=== PATIENT | female | born 1970 | race Caucasian/White ===

== ENCOUNTER 2017-10-28 16:32 | Emergency (ER) | payer MEDICAID ==
[2017-10-28 18:38] LABS: ADD MAN DIFF? NO
[2017-10-28 18:42] LABS: BASOPHILS % 0.8 % (0.0-2.0); EOSINOPHILS # 0.1 10^3/ul (0.0-0.5); EOSINOPHILS % 1.2 % (0.0-7.0); HEMATOCRIT 40.7 % (37.0-47.0); HEMOGLOBIN 14.1 g/dl (12.0-16.0); LYMPHOCYTES # 1.7 10^3/ul (0.8-2.9); LYMPHOCYTES % 32.4 % (15.0-51.0); MEAN CORPUSCULAR HGB CONC 34.6 g/dl (32.0-37.0); MEAN CORPUSCULAR VOLUME 92.3 fl (82.0-101.0); MEAN PLATELET VOLUME 10.3 fl (7.4-10.4); MONOCYTE # 0.7 10^3/ul (0.3-0.9); MONOCYTES % 13.3 % (0.0-11.0); NEUTROPHIL # 2.7 10^3/ul (1.6-7.5); NEUTROPHILS % 52.3 % (39.0-77.0); PLATELET COUNT 144 10^3/UL (140-415); RED BLOOD COUNT 4.41 10^6/ul (4.20-5.40); RED CELL DISTRIBUTION WIDTH 11.4 % (11.5-14.5)
[2017-10-28 18:42] LABS: WHITE BLOOD COUNT 5.1 10^3/ul (4.8-10.8)
[2017-10-28] MEDS: SOD CHLORIDE 0.9% 1,000 ML IV (18:45)
[2017-10-28 18:53] LABS: ADD UMIC NO; UR ASCORBIC ACID NEGATIVE (NEGATIVE); UR BILIRUBIN (Dip) NEGATIVE (NEGATIVE); UR BLOOD (Dip) NEGATIVE (NEGATIVE); UR CLARITY CLEAR (CLEAR); UR COLOR STRAW (YELLOW); UR GLUCOSE (Dip) NEGATIVE (NEGATIVE); UR KETONES (Dip) NEGATIVE (NEGATIVE); UR LEUKOCYTE ESTERASE (Dip) NEGATIVE Leu/ul (NEGATIVE); UR NITRITE (Dip) NEGATIVE (NEGATIVE); UR SPECIFIC GRAVITY (Dip) 1.014 (1.003-1.030); UR TOTAL PROTEIN (Dip) NEGATIVE (NEGATIVE); UR UROBILINOGEN (Dip) NEGATIVE (NEGATIVE)
[2017-10-28 19:04] LABS: ANION GAP 15 (8-16); BLOOD UREA NITROGEN 13 mg/dl (7-20); CALCIUM 9.6 mg/dl (8.4-10.2); CARBON DIOXIDE 27 mmol/L (21-31); CHLORIDE 102 mmol/L (97-110); CREATININE 0.58 mg/dl (0.44-1.00); GLUCOSE 150 mg/dl (70-220); SODIUM 140 mmol/L (135-144)
[2017-10-28 20:17] LABS: TROPONIN-I < 0.012 ng/ml (0.00-0.12)
== END 2017-10-28 21:41 | disposition home or self-care (01) ==
LOC: E/R 16:32
DX: H53.8 Other visual disturbances (principal); R42 Dizziness and giddiness; I10 Essential (primary) hypertension; Z85.3 Personal history of malignant neoplasm of breast
CPT/HCPCS: 36415; 70450; 71045; 80048; 81003; 82962; 84484; 85025; 99285-25

== ENCOUNTER 2018-10-09 14:38 | Inpatient (IN) | payer MEDICAID ==
[2018-10-09] MEDS: METOCLOPRAMIDE 10 MG INJ IV (16:48)
[2018-10-09] MEDS: SOD CHLORIDE 0.9% 1,000 ML IV (16:48)
[2018-10-09 16:50] LABS: ABNORMAL IP MESSAGE 1; HEMATOCRIT 38.5 % (37.0-47.0); HEMOGLOBIN 13.5 g/dl (12.0-16.0); MEAN CORPUSCULAR HEMOGLOBIN 32.3 pg (29.0-33.0); MEAN CORPUSCULAR HGB CONC 35.1 g/dl (32.0-37.0); MEAN CORPUSCULAR VOLUME 92.1 fl (82.0-101.0); MEAN PLATELET VOLUME 11.8 fl (7.4-10.4); NUCLEATED RED BLOOD CELLS% 1.5 /100WBC (0.0-0.0); PLATELET COUNT 63 10^3/UL (140-415); RED BLOOD COUNT 4.18 10^6/ul (4.20-5.40); RED CELL DISTRIBUTION WIDTH 13.5 % (11.5-14.5)
[2018-10-09 16:50] LABS: WHITE BLOOD COUNT 5.2 10^3/ul (4.8-10.8)
[2018-10-09 16:54] LABS: ADD MAN DIFF? YES; POSITIVE DIFF @See below
[2018-10-09 17:01] LABS: HEMOGLOBIN A1C 7.2 % (0-5.9)
[2018-10-09 17:07] LABS: ALANINE AMINOTRANSFERASE 271 IU/L (13-69); ALBUMIN 4.4 g/dl (3.3-4.9); ALBUMIN/GLOBULIN RATIO 1.33; ALKALINE PHOSPHATASE 531 IU/L (42-121); ANION GAP 13 (5-13); ASPARTATE AMINO TRANSFERASE 287 IU/L (15-46); BILIRUBIN,INDIRECT 0.7 mg/dl (0-1.1); BILIRUBIN,TOTAL 1.3 mg/dl (0.2-1.3); BLOOD UREA NITROGEN 17 mg/dl (7-20); CALCIUM 11.2 mg/dl (8.4-10.2); CARBON DIOXIDE 26 mmol/L (21-31); CHLORIDE 94 mmol/L (97-110); CHOL/HDL RATIO 4.5 RATIO; CHOLESTEROL 309 mg/dl (100-200); CREATININE 0.52 mg/dl (0.44-1.00); Estimated GFR > 60 mL/min (>60); GLUCOSE 257 mg/dl (70-220); HDL CHOLESTEROL 68 mg/dl (34-88); INR 0.91; LDL CHOLESTEROL,CALCULATED 202 mg/dl; POTASSIUM 3.8 mmol/L (3.5-5.1); PROTIME 12.4 Sec (11.9-14.9); SODIUM 133 mmol/L (135-144); TOTAL PROTEIN 7.7 g/dl (6.1-8.1); TRIGLYCERIDES 197 mg/dl (0-149)
[2018-10-09 17:08] LABS: PARTIAL THROMBOPLASTIN TIME 29.7 Sec (23.0-35.0)
[2018-10-09 17:17] LABS: TROPONIN-I 0.013 ng/ml (0.000-0.120)
[2018-10-09 17:47] LABS: BAND NEUTROPHILS #M 0.2 10^3/ul (0.0-0.6); BAND NEUTROPHILS % (M) 5 % (0-4); BASOPHILS % (M) 1 % (0-2); GIANT THROMBO% (M) 1 % (0-0); LYMPHOCYTES #M 1.3 10^3/ul (0.8-2.9); LYMPHOCYTES % (M) 26 % (15-51); METAMYELOCYTES #M 0.1 10^3/ul (0.0-0.0); METAMYELOCYTES %M 2 % (0-0); MONOCYTE #M 0.6 10^3/ul (0.3-0.9); MONOCYTES % (M) 13 % (0-11); MYELOCYTES % (M) 1 % (0-0); PLATELET ESTIMATE DECREASED; POLYCHROMASIA 1+ (0-0); PROMYELOCYTES #M 0.1 10^3/ul (0-0); PROMYELOCYTES % (M) 2 % (0-0); SEG NEUT #M 2.6 10^3/ul (1.6-7.5); SEGMENTED NEUTROPHILS (M) % 50 % (39-77); SMUDGE%M 10 % (0-0)
[2018-10-09] MEDS: SOD CHLORIDE 0.9% 0 ML IV (18:42)
[2018-10-09 19:25] LABS: ADD UMIC NO; UR ASCORBIC ACID NEGATIVE (NEGATIVE); UR BILIRUBIN (Dip) NEGATIVE (NEGATIVE); UR BLOOD (Dip) NEGATIVE (NEGATIVE); UR CLARITY CLEAR (CLEAR); UR COLOR YELLOW (YELLOW); UR GLUCOSE (Dip) NEGATIVE (NEGATIVE); UR KETONES (Dip) NEGATIVE (NEGATIVE); UR LEUKOCYTE ESTERASE (Dip) NEGATIVE Leu/ul (NEGATIVE); UR NITRITE (Dip) NEGATIVE (NEGATIVE); UR SPECIFIC GRAVITY (Dip) 1.044 (1.003-1.030); UR TOTAL PROTEIN (Dip) NEGATIVE (NEGATIVE); UR UROBILINOGEN (Dip) 1+ mg/dL (NEGATIVE)
[2018-10-09] MEDS ORDERED: ALBUTEROL/IPRATROPIUM (NEB) 3 ML AMP NEB (20:00)
[2018-10-09] MEDS: LABETALOL HCL 20MG INJ IV ×2 (20:00→22:05)
[2018-10-09 20:39] LABS: AMPHETAMINE/METHAMPHETAMINE Negative (NEGATIVE); BARBITURATES Negative (NEGATIVE); BENZODIAZEPINES Negative (NEGATIVE); CANNABINOIDS Negative (NEGATIVE); COCAINE Negative (NEGATIVE); OPIATES Negative (NEGATIVE)
[2018-10-09] MEDS: DEXAMETHASONE 10 MG/ML 1 ML INJ IV (20:59)
[2018-10-09] MEDS: SOD CHLORIDE 0.9% 100 ML (21:00)
[2018-10-09] MEDS: IOHEXOL 100 ML (21:00)
[2018-10-10 01:34] LABS: TYPE AND SCREEN 1 1
[2018-10-10] MEDS: LABETALOL HCL 20MG INJ IV ×5 (01:40→16:51)
[2018-10-10 04:41] LABS: ADD MAN DIFF? NO
[2018-10-10 04:49] LABS: WHITE BLOOD COUNT 6.3 10^3/ul (4.8-10.8)
[2018-10-10 04:49] LABS: ABNORMAL IP MESSAGE 1; BASOPHILS % 0.6 % (0.0-2.0); EOSINOPHILS % 0.3 % (0.0-7.0); HEMATOCRIT 34.1 % (37.0-47.0); HEMOGLOBIN 11.9 g/dl (12.0-16.0); LYMPHOCYTES # 1.5 10^3/ul (0.8-2.9); LYMPHOCYTES % 23.9 % (15.0-51.0); MEAN CORPUSCULAR HEMOGLOBIN 32.5 pg (29.0-33.0); MEAN CORPUSCULAR HGB CONC 34.9 g/dl (32.0-37.0); MEAN CORPUSCULAR VOLUME 93.2 fl (82.0-101.0); MONOCYTE # 0.5 10^3/ul (0.3-0.9); MONOCYTES % 7.6 % (0.0-11.0); NEUTROPHIL # 3.9 10^3/ul (1.6-7.5); NEUTROPHILS % 62.2 % (39.0-77.0); NUCLEATED RED BLOOD CELLS # 0.1 10^3/ul (0.0-0.0); PLATELET COUNT 113 10^3/UL (140-415); RED BLOOD COUNT 3.66 10^6/ul (4.20-5.40); RED CELL DISTRIBUTION WIDTH 13.5 % (11.5-14.5)
[2018-10-10 05:06] LABS: POSITIVE DIFF @See below
[2018-10-10 05:11] LABS: ALANINE AMINOTRANSFERASE 238 IU/L (13-69); ALBUMIN 4.5 g/dl (3.3-4.9); ALBUMIN/GLOBULIN RATIO 1.36; ALKALINE PHOSPHATASE 449 IU/L (42-121); ANION GAP 11 (5-13); ASPARTATE AMINO TRANSFERASE 239 IU/L (15-46); BILIRUBIN,INDIRECT 0.8 mg/dl (0-1.1); BILIRUBIN,TOTAL 1.3 mg/dl (0.2-1.3); BLOOD UREA NITROGEN 14 mg/dl (7-20); CALCIUM 10.9 mg/dl (8.4-10.2); CARBON DIOXIDE 28 mmol/L (21-31); CHLORIDE 98 mmol/L (97-110); Estimated GFR > 60 mL/min (>60); GLUCOSE 220 mg/dl (70-220); SODIUM 137 mmol/L (135-144); TOTAL PROTEIN 7.8 g/dl (6.1-8.1)
[2018-10-10] MEDS: DEXAMETHASONE 10 MG/ML 1 ML INJ IV ×4 (06:47→23:59)
[2018-10-10] MEDS ORDERED: PATIENT'S OWN MEDICATION PO (09:00)
[2018-10-10] MEDS: HYDROCODONE/APAP (5/325) TAB PO (17:11)
[2018-10-10] MEDS: hydrALAzine 20 MG INJ IV (18:33)
[2018-10-10] MEDS ORDERED: GLUCAGON 1 MG INJ IM (19:00)
[2018-10-10] MEDS ORDERED: GLUCOSE GEL 15 GRAM TUBE BUCCAL (19:00)
[2018-10-10] MEDS ORDERED: GLUCOSE GEL 15 GRAM TUBE PO ×2 (19:00)
[2018-10-10] MEDS ORDERED: DEXTROSE 50% 50 ML SYRINGE IV ×2 (19:00)
[2018-10-10] MEDS: INSULIN ASPART [NOVOLOG] 3 ML PEN SC (20:57)
[2018-10-11] MEDS: HYDROCODONE/APAP (5/325) TAB PO ×2 (04:07→12:37)
[2018-10-11 05:09] LABS: ADD MAN DIFF? NO
[2018-10-11 05:14] LABS: WHITE BLOOD COUNT 8.4 10^3/ul (4.8-10.8)
[2018-10-11 05:14] LABS: ABNORMAL IP MESSAGE 1; BASOPHILS % 0.4 % (0.0-2.0); EOSINOPHILS % 0.1 % (0.0-7.0); HEMATOCRIT 36.7 % (37.0-47.0); HEMOGLOBIN 12.7 g/dl (12.0-16.0); LYMPHOCYTES # 2.3 10^3/ul (0.8-2.9); LYMPHOCYTES % 27.7 % (15.0-51.0); MEAN CORPUSCULAR HEMOGLOBIN 32.3 pg (29.0-33.0); MEAN CORPUSCULAR HGB CONC 34.6 g/dl (32.0-37.0); MEAN CORPUSCULAR VOLUME 93.4 fl (82.0-101.0); MEAN PLATELET VOLUME 11.3 fl (7.4-10.4); MONOCYTE # 0.6 10^3/ul (0.3-0.9); NEUTROPHILS % 59.7 % (39.0-77.0); NUCLEATED RED BLOOD CELLS # 0.1 10^3/ul (0.0-0.0); NUCLEATED RED BLOOD CELLS% 1.2 /100WBC (0.0-0.0); PLATELET COUNT 122 10^3/UL (140-415); RED BLOOD COUNT 3.93 10^6/ul (4.20-5.40); RED CELL DISTRIBUTION WIDTH 13.9 % (11.5-14.5)
[2018-10-11 05:20] LABS: POSITIVE DIFF @See below
[2018-10-11 05:35] LABS: MAGNESIUM 2.4 mg/dl (1.7-2.5)
[2018-10-11 05:35] LABS: PHOSPHORUS 5.3 mg/dl (2.5-4.9)
[2018-10-11 05:38] LABS: ANION GAP 12 (5-13); BLOOD UREA NITROGEN 16 mg/dl (7-20); CALCIUM 10.6 mg/dl (8.4-10.2); CARBON DIOXIDE 27 mmol/L (21-31); CHLORIDE 97 mmol/L (97-110); CREATININE 0.49 mg/dl (0.44-1.00); Estimated GFR > 60 mL/min (>60); GLUCOSE 219 mg/dl (70-220); SODIUM 136 mmol/L (135-144)
[2018-10-11] MEDS: DEXAMETHASONE 10 MG/ML 1 ML INJ IV ×3 (05:50→18:31)
[2018-10-11] MEDS: INSULIN ASPART [NOVOLOG] 3 ML PEN SC ×4 (09:03→20:29)
[2018-10-11 09:30] LABS: BAND NEUTROPHILS #M 0.6 10^3/ul (0.0-0.6); BAND NEUTROPHILS % (M) 8 % (0-4); EOSINOPHILS % (M) 1 % (0-7); GIANT THROMBO% (M) 1 % (0-0); LYMPHOCYTES #M 1.9 10^3/ul (0.8-2.9); LYMPHOCYTES % (M) 23 % (15-51); METAMYELOCYTES %M 1 % (0-0); MONOCYTE #M 0.5 10^3/ul (0.3-0.9); MONOCYTES % (M) 6 % (0-11); MYELOCYTES % (M) 1 % (0-0); PLATELET ESTIMATE DECREASED; SEG NEUT #M 5.1 10^3/ul (1.6-7.5); SEGMENTED NEUTROPHILS (M) % 60 % (39-77); SMUDGE%M 11 % (0-0)
[2018-10-11] MEDS: LEVETIRACETAM 500 MG TAB PO ×2 (10:12→21:29)
[2018-10-11] MEDS: [UNRECOGNIZED DRUG - OTHER] PO (11:00)
[2018-10-11 12:28] LABS: INR 0.92; PARTIAL THROMBOPLASTIN TIME 24.7 Sec (23.0-35.0); PROTIME 12.5 Sec (11.9-14.9)
[2018-10-11] MEDS: TRIMETHOPRIM/SULFAMETHOX (DS) TAB PO (12:37)
[2018-10-11] MEDS: ACETAMINOPHEN 650MG/20.3ML CUP PO (18:32)
[2018-10-11] MEDS: LABETALOL HCL 20MG INJ IV (19:28)
[2018-10-11] MEDS ORDERED: NITROGLYCERIN (SL) 0.4 MG TAB (19:41)
[2018-10-11] MEDS: NITROGLYCERIN (SL) 0.4 MG TAB SL (19:48)
[2018-10-11 20:18] LABS: CREATINE KINASE 66 IU/L (23-200)
[2018-10-11] MEDS: INSULIN GLARGINE [LANTus] (100 UNITS/ML) SYG SC (20:29)
[2018-10-11 20:31] LABS: CK INDEX 0.9; TROPONIN-I < 0.012 ng/ml (0.000-0.120)
[2018-10-11 20:43] LABS: AADO2 Arterial 211.2 mmHg (7.0-24.0); Allen Test ACCEPTAB; Arterial Base Excess -0.2 mmol/L (-3.0-3); Arterial Blood Gas Oxygen Sat 99.4 mmHG (95.0-98.0); Arterial COHb 0.3 % (0.0-3.0); Arterial Fraction of Oxyhgb 98.7 % (93.0-99.0); Arterial HCO3 22.6 mmol/L (22.0-26.0); Arterial MetHb 0.4 % (0.0-1.5); Arterial pCO2 31.6 mmhg (35-45); MODE MASK - NRB; Site Right Radial
[2018-10-12] MEDS ORDERED: VANCOMYCIN IV PER PHARMACY XX (00:30)
[2018-10-12] MEDS ORDERED: [UNRECOGNIZED DRUG - OTHER] (00:47)
[2018-10-12] MEDS: DEXAMETHASONE 10 MG/ML 1 ML INJ IV ×5 (01:08→23:59)
[2018-10-12] MEDS: HYDROCODONE/APAP (5/325) TAB PO ×3 (01:08→20:29)
[2018-10-12] MEDS: PIPER-TAZO 3.375 GM IV (PMX) 100 ML IVPB ×5 (01:15→23:59)
[2018-10-12 01:50] LABS: TROPONIN-I < 0.012 ng/ml (0.000-0.120)
[2018-10-12] MEDS: VANCOMYCIN 2 GM in SOD CHLORIDE 0.9% 500 ML IVPB (03:57)
[2018-10-12 06:36] LABS: ADD MAN DIFF? NO
[2018-10-12 06:41] LABS: ABNORMAL IP MESSAGE 1; HEMATOCRIT 34.1 % (37.0-47.0); HEMOGLOBIN 11.8 g/dl (12.0-16.0); MEAN CORPUSCULAR HEMOGLOBIN 32.7 pg (29.0-33.0); MEAN CORPUSCULAR HGB CONC 34.6 g/dl (32.0-37.0); MEAN CORPUSCULAR VOLUME 94.5 fl (82.0-101.0); MEAN PLATELET VOLUME 10.8 fl (7.4-10.4); NUCLEATED RED BLOOD CELLS% 1.8 /100WBC (0.0-0.0); PLATELET COUNT 93 10^3/UL (140-415); RED BLOOD COUNT 3.61 10^6/ul (4.20-5.40); RED CELL DISTRIBUTION WIDTH 14.2 % (11.5-14.5)
[2018-10-12 06:41] LABS: WHITE BLOOD COUNT 7.3 10^3/ul (4.8-10.8)
[2018-10-12 07:00] LABS: POSITIVE DIFF @See below
[2018-10-12 07:06] LABS: ANION GAP 14 (5-13); BLOOD UREA NITROGEN 20 mg/dl (7-20); CALCIUM 9.9 mg/dl (8.4-10.2); CARBON DIOXIDE 26 mmol/L (21-31); CHLORIDE 97 mmol/L (97-110); CREATININE 0.54 mg/dl (0.44-1.00); Estimated GFR > 60 mL/min (>60); GLUCOSE 251 mg/dl (70-220); POTASSIUM 4.4 mmol/L (3.5-5.1); SODIUM 137 mmol/L (135-144)
[2018-10-12] MEDS: LIDOCAINE 5% PATCH TD ×2 (07:20→07:53)
[2018-10-12 08:12] LABS: BAND NEUTROPHILS #M 0.5 10^3/ul (0.0-0.6); BAND NEUTROPHILS % (M) 7 % (0-4); ERYTHROBLAST% (NRBC) (M) 2 % (0-0); GIANT THROMBO% (M) 1 % (0-0); LYMPHOCYTES #M 1.3 10^3/ul (0.8-2.9); LYMPHOCYTES % (M) 19 % (15-51); METAMYELOCYTES %M 1 % (0-0); MONOCYTE #M 0.3 10^3/ul (0.3-0.9); MONOCYTES % (M) 5 % (0-11); MYELOCYTES % (M) 1 % (0-0); PLATELET ESTIMATE DECREASED; REACTIVE LYMPHOCYTES% (M) 1 % (0-0); SEG NEUT #M 4.9 10^3/ul (1.6-7.5); SEGMENTED NEUTROPHILS (M) % 66 % (39-77); SMUDGE%M 19 % (0-0)
[2018-10-12] MEDS: INSULIN ASPART [NOVOLOG] 3 ML PEN SC ×7 (08:19→21:38)
[2018-10-12] MEDS: LEVETIRACETAM 500 MG TAB PO ×2 (08:22→21:39)
[2018-10-12] MEDS: ACETAMINOPHEN 650MG/20.3ML CUP PO (08:22)
[2018-10-12] MEDS ORDERED: METHOTREXATE IT (14:30)
[2018-10-12] MEDS ORDERED: HYDROCORTISONE IT (14:30)
[2018-10-12] MEDS ORDERED: SOD CHLORIDE 0.9% IT (14:30)
[2018-10-12] MEDS: VANCOMYCIN 1.5 GM in SOD CHLORIDE 0.9% 250 ML IVPB (15:58)
[2018-10-12] MEDS ORDERED: VANCOMYCIN 1.25 GM in SOD CHLORIDE 0.9% 250 ML IVPB (16:00)
[2018-10-12 16:30] LABS: GLUCOSE,CSF 146 mg/dl (50-80)
[2018-10-12 16:34] LABS: CSF RBC 0 /uL (0-0); CSF WBC 5 /cmm (0-10)
[2018-10-12 16:44] LABS: TOTAL PROTEIN,CSF 350 mg/dl (12-60)
[2018-10-12] MEDS: HYDROmorphONE 2 MG TAB PO (16:49)
[2018-10-12 17:32] LABS: CSF CLARITY CLEAR
[2018-10-12 17:32] LABS: CSF COLOR SLIGHT XANTHOCHROMIC
[2018-10-12 17:33] LABS: CSF VOLUME 5.1 ml; CSF#TUBE COUNT TUBE#1; CSF#TUBES REC'D 1
[2018-10-12] MEDS: INSULIN GLARGINE [LANTus] (100 UNITS/ML) SYG SC (20:37)
[2018-10-13] MEDS: HYDROCODONE/APAP (5/325) TAB PO ×4 (03:38→21:32)
[2018-10-13] MEDS: VANCOMYCIN 1.5 GM in SOD CHLORIDE 0.9% 250 ML IVPB ×2 (04:16→16:53)
[2018-10-13] MEDS: DEXAMETHASONE 10 MG/ML 1 ML INJ IV ×3 (05:45→17:34)
[2018-10-13] MEDS: PIPER-TAZO 3.375 GM IV (PMX) 100 ML IVPB ×3 (07:26→21:13)
[2018-10-13] MEDS: TRIMETHOPRIM/SULFAMETHOX (DS) TAB PO (08:14)
[2018-10-13] MEDS: LEVETIRACETAM 500 MG TAB PO ×2 (08:14→21:21)
[2018-10-13] MEDS: INSULIN ASPART [NOVOLOG] 3 ML PEN SC ×7 (08:19→21:26)
[2018-10-13 08:37] LABS: ABNORMAL IP MESSAGE 1; HEMATOCRIT 34.6 % (37.0-47.0); HEMOGLOBIN 12.1 g/dl (12.0-16.0); MEAN CORPUSCULAR HEMOGLOBIN 32.4 pg (29.0-33.0); MEAN CORPUSCULAR VOLUME 92.8 fl (82.0-101.0); MEAN PLATELET VOLUME 10.7 fl (7.4-10.4); NUCLEATED RED BLOOD CELLS% 1.8 /100WBC (0.0-0.0); PLATELET COUNT 94 10^3/UL (140-415); RED BLOOD COUNT 3.73 10^6/ul (4.20-5.40)
[2018-10-13 08:37] LABS: WHITE BLOOD COUNT 6.3 10^3/ul (4.8-10.8)
[2018-10-13 08:39] LABS: ADD MAN DIFF? YES; POSITIVE DIFF @See below
[2018-10-13 09:00] LABS: ALANINE AMINOTRANSFERASE 283 IU/L (13-69); ALBUMIN 4.1 g/dl (3.3-4.9); ALBUMIN/GLOBULIN RATIO 1.32; ALKALINE PHOSPHATASE 523 IU/L (42-121); ANION GAP 12 (5-13); ASPARTATE AMINO TRANSFERASE 225 IU/L (15-46); BILIRUBIN,INDIRECT 0.8 mg/dl (0-1.1); BILIRUBIN,TOTAL 1.3 mg/dl (0.2-1.3); BLOOD UREA NITROGEN 20 mg/dl (7-20); CALCIUM 9.9 mg/dl (8.4-10.2); CARBON DIOXIDE 25 mmol/L (21-31); CHLORIDE 98 mmol/L (97-110); CREATININE 0.52 mg/dl (0.44-1.00); Estimated GFR > 60 mL/min (>60); GLUCOSE 238 mg/dl (70-220); MAGNESIUM 2.4 mg/dl (1.7-2.5); PHOSPHORUS 4.6 mg/dl (2.5-4.9); POTASSIUM 4.6 mmol/L (3.5-5.1); SODIUM 135 mmol/L (135-144); TOTAL PROTEIN 7.2 g/dl (6.1-8.1)
[2018-10-13 10:07] LABS: ANISOCYTOSIS 1+ (0-0); BAND NEUTROPHILS #M 0.8 10^3/ul (0.0-0.6); BAND NEUTROPHILS % (M) 14 % (0-4); ERYTHROBLAST% (NRBC) (M) 2 % (0-0); LYMPHOCYTES #M 1.7 10^3/ul (0.8-2.9); LYMPHOCYTES % (M) 28 % (15-51); MICROCYTOSIS 1+ (0-0); MONOCYTE #M 0.3 10^3/ul (0.3-0.9); MONOCYTES % (M) 6 % (0-11); MYELOCYTES % (M) 1 % (0-0); PLATELET ESTIMATE DECREASED; POLYCHROMASIA 1+ (0-0); REACTIVE LYMPHOCYTES% (M) 1 % (0-0); SEG NEUT #M 3.2 10^3/ul (1.6-7.5); SEGMENTED NEUTROPHILS (M) % 50 % (39-77); SMUDGE%M 4 % (0-0)
[2018-10-13] MEDS: ACETAMINOPHEN 650MG/20.3ML CUP PO (11:48)
[2018-10-13 15:45] LABS: VANCOMYCIN,TROUGH 11.3 ug/ml (10.0-20.0)
[2018-10-13] MEDS: LIDOCAINE 1% (MPF) 30 ML INJ INJ (18:02)
[2018-10-13] MEDS: hydrALAzine 20 MG INJ IV (21:22)
[2018-10-13] MEDS: INSULIN GLARGINE [LANTus] (100 UNITS/ML) SYG SC (21:26)
[2018-10-14] MEDS: NITROGLYCERIN (SL) 0.4 MG TAB SL (00:03)
[2018-10-14 00:21] LABS: TROPONIN-I < 0.012 ng/ml (0.000-0.120)
[2018-10-14] MEDS: DEXAMETHASONE 10 MG/ML 1 ML INJ IV ×4 (00:40→18:19)
[2018-10-14] MEDS: PIPER-TAZO 3.375 GM IV (PMX) 100 ML IVPB ×4 (02:04→20:29)
[2018-10-14] MEDS: VANCOMYCIN 1.5 GM in SOD CHLORIDE 0.9% 250 ML IVPB ×2 (03:27→17:01)
[2018-10-14] MEDS: HYDROCODONE/APAP (5/325) TAB PO (04:52)
[2018-10-14 06:26] LABS: ADD MAN DIFF? NO
[2018-10-14 06:29] LABS: ABNORMAL IP MESSAGE 1; BASOPHILS % 0.2 % (0.0-2.0); HEMATOCRIT 33.1 % (37.0-47.0); HEMOGLOBIN 11.6 g/dl (12.0-16.0); LYMPHOCYTES # 1.1 10^3/ul (0.8-2.9); LYMPHOCYTES % 20.8 % (15.0-51.0); MEAN CORPUSCULAR HEMOGLOBIN 32.3 pg (29.0-33.0); MEAN CORPUSCULAR VOLUME 92.2 fl (82.0-101.0); MONOCYTE # 0.4 10^3/ul (0.3-0.9); MONOCYTES % 6.9 % (0.0-11.0); NEUTROPHIL # 3.5 10^3/ul (1.6-7.5); NEUTROPHILS % 66.7 % (39.0-77.0); NUCLEATED RED BLOOD CELLS # 0.1 10^3/ul (0.0-0.0); NUCLEATED RED BLOOD CELLS% 1.5 /100WBC (0.0-0.0); PLATELET COUNT 88 10^3/UL (140-415); RED BLOOD COUNT 3.59 10^6/ul (4.20-5.40); RED CELL DISTRIBUTION WIDTH 13.9 % (11.5-14.5)
[2018-10-14 06:29] LABS: WHITE BLOOD COUNT 5.2 10^3/ul (4.8-10.8)
[2018-10-14 06:46] LABS: HEMOGLOBIN A1C 7.2 % (0-5.9)
[2018-10-14 06:58] LABS: ANION GAP 11 (5-13); BLOOD UREA NITROGEN 18 mg/dl (7-20); CALCIUM 10.1 mg/dl (8.4-10.2); CARBON DIOXIDE 25 mmol/L (21-31); CHLORIDE 99 mmol/L (97-110); CREATININE 0.46 mg/dl (0.44-1.00); Estimated GFR > 60 mL/min (>60); GLUCOSE 225 mg/dl (70-220); MAGNESIUM 2.5 mg/dl (1.7-2.5); PHOSPHORUS 4.2 mg/dl (2.5-4.9); POTASSIUM 4.3 mmol/L (3.5-5.1); SODIUM 135 mmol/L (135-144)
[2018-10-14 07:08] LABS: TROPONIN-I < 0.012 ng/ml (0.000-0.120)
[2018-10-14] MEDS: INSULIN ASPART [NOVOLOG] 3 ML PEN SC ×7 (08:00→20:26)
[2018-10-14] MEDS: LEVETIRACETAM 500 MG TAB PO ×2 (09:26→20:26)
[2018-10-14] MEDS: ACETAMINOPHEN 650MG/20.3ML CUP PO ×2 (09:32→17:10)
[2018-10-14] MEDS ORDERED: METHOTREXATE IT (13:15)
[2018-10-14] MEDS ORDERED: SOD CHLORIDE 0.9% IT (13:15)
[2018-10-14] MEDS ORDERED: HYDROCORTISONE IT (13:15)
[2018-10-14] MEDS: POLYETHYLENE GLYCOL 17 GM PACKET PO (17:11)
[2018-10-14] MEDS: INSULIN GLARGINE [LANTus] (100 UNITS/ML) SYG SC (20:27)
[2018-10-14] MEDS: PANTOPRAZOLE (EC) 40 MG TAB PO (23:28)
[2018-10-14] MEDS: LIDOCAINE/MYLANTA 40 ML BTL PO (23:28)
[2018-10-15] MEDS: DEXAMETHASONE 10 MG/ML 1 ML INJ IV ×4 (01:09→18:11)
[2018-10-15] MEDS: PIPER-TAZO 3.375 GM IV (PMX) 100 ML IVPB ×4 (01:09→19:24)
[2018-10-15] MEDS: VANCOMYCIN 1.5 GM in SOD CHLORIDE 0.9% 250 ML IVPB ×2 (03:41→16:04)
[2018-10-15] MEDS: ACETAMINOPHEN 650MG/20.3ML CUP PO ×3 (04:44→18:18)
[2018-10-15 05:26] LABS: ADD MAN DIFF? NO
[2018-10-15 05:29] LABS: WHITE BLOOD COUNT 5.5 10^3/ul (4.8-10.8)
[2018-10-15 05:29] LABS: ABNORMAL IP MESSAGE 1; BASOPHILS % 0.2 % (0.0-2.0); HEMATOCRIT 34.1 % (37.0-47.0); HEMOGLOBIN 11.8 g/dl (12.0-16.0); LYMPHOCYTES # 1.2 10^3/ul (0.8-2.9); LYMPHOCYTES % 21.6 % (15.0-51.0); MEAN CORPUSCULAR HEMOGLOBIN 32.1 pg (29.0-33.0); MEAN CORPUSCULAR HGB CONC 34.6 g/dl (32.0-37.0); MEAN CORPUSCULAR VOLUME 92.7 fl (82.0-101.0); MONOCYTE # 0.4 10^3/ul (0.3-0.9); MONOCYTES % 6.5 % (0.0-11.0); NEUTROPHIL # 3.7 10^3/ul (1.6-7.5); NUCLEATED RED BLOOD CELLS # 0.1 10^3/ul (0.0-0.0); NUCLEATED RED BLOOD CELLS% 0.9 /100WBC (0.0-0.0); PLATELET COUNT 87 10^3/UL (140-415); RED BLOOD COUNT 3.68 10^6/ul (4.20-5.40); RED CELL DISTRIBUTION WIDTH 14.2 % (11.5-14.5)
[2018-10-15 05:43] LABS: POSITIVE DIFF @See below
[2018-10-15 05:54] LABS: ANION GAP 12 (5-13); BLOOD UREA NITROGEN 22 mg/dl (7-20); CALCIUM 9.7 mg/dl (8.4-10.2); CARBON DIOXIDE 25 mmol/L (21-31); CHLORIDE 98 mmol/L (97-110); Estimated GFR > 60 mL/min (>60); GLUCOSE 272 mg/dl (70-220); POTASSIUM 4.6 mmol/L (3.5-5.1); SODIUM 135 mmol/L (135-144)
[2018-10-15] MEDS: PANTOPRAZOLE (EC) 40 MG TAB PO (06:21)
[2018-10-15] MEDS: INSULIN ASPART [NOVOLOG] 3 ML PEN SC ×7 (08:35→20:56)
[2018-10-15] MEDS: HYDROCODONE/APAP (5/325) TAB PO ×2 (08:36→14:54)
[2018-10-15] MEDS: POLYETHYLENE GLYCOL 17 GM PACKET PO (08:37)
[2018-10-15] MEDS: TRIMETHOPRIM/SULFAMETHOX (DS) TAB PO (08:37)
[2018-10-15] MEDS: LEVETIRACETAM 500 MG TAB PO ×2 (08:38→20:51)
[2018-10-15] MEDS: INSULIN GLARGINE [LANTus] (100 UNITS/ML) SYG SC (20:55)
[2018-10-16] MEDS: PIPER-TAZO 3.375 GM IV (PMX) 100 ML IVPB ×4 (00:29→17:50)
[2018-10-16] MEDS: DEXAMETHASONE 10 MG/ML 1 ML INJ IV ×3 (00:29→18:37)
[2018-10-16] MEDS: VANCOMYCIN 1.5 GM in SOD CHLORIDE 0.9% 250 ML IVPB ×2 (03:33→16:47)
[2018-10-16 06:06] LABS: ADD MAN DIFF? NO
[2018-10-16] MEDS: PANTOPRAZOLE (EC) 40 MG TAB PO ×2 (06:14→20:27)
[2018-10-16 06:15] LABS: WHITE BLOOD COUNT 4.4 10^3/ul (4.8-10.8)
[2018-10-16 06:15] LABS: ABNORMAL IP MESSAGE 1; BASOPHILS % 0.2 % (0.0-2.0); HEMATOCRIT 32.2 % (37.0-47.0); HEMOGLOBIN 11.3 g/dl (12.0-16.0); LYMPHOCYTES # 0.9 10^3/ul (0.8-2.9); LYMPHOCYTES % 20.6 % (15.0-51.0); MEAN CORPUSCULAR HEMOGLOBIN 32.6 pg (29.0-33.0); MEAN CORPUSCULAR HGB CONC 35.1 g/dl (32.0-37.0); MEAN CORPUSCULAR VOLUME 92.8 fl (82.0-101.0); MEAN PLATELET VOLUME 10.2 fl (7.4-10.4); MONOCYTE # 0.1 10^3/ul (0.3-0.9); MONOCYTES % 3.2 % (0.0-11.0); NEUTROPHIL # 3.2 10^3/ul (1.6-7.5); NEUTROPHILS % 71.7 % (39.0-77.0); NUCLEATED RED BLOOD CELLS% 0.7 /100WBC (0.0-0.0); PLATELET COUNT 68 10^3/UL (140-415); RED BLOOD COUNT 3.47 10^6/ul (4.20-5.40); RED CELL DISTRIBUTION WIDTH 14.6 % (11.5-14.5)
[2018-10-16 06:25] LABS: POSITIVE DIFF @See below
[2018-10-16 06:50] LABS: ANION GAP 11 (5-13); BLOOD UREA NITROGEN 19 mg/dl (7-20); CALCIUM 9.6 mg/dl (8.4-10.2); CARBON DIOXIDE 27 mmol/L (21-31); CHLORIDE 98 mmol/L (97-110); CREATININE 0.54 mg/dl (0.44-1.00); Estimated GFR > 60 mL/min (>60); GLUCOSE 244 mg/dl (70-220); MAGNESIUM 2.5 mg/dl (1.7-2.5); PHOSPHORUS 4.3 mg/dl (2.5-4.9); POTASSIUM 4.7 mmol/L (3.5-5.1); SODIUM 136 mmol/L (135-144)
[2018-10-16] MEDS: POLYETHYLENE GLYCOL 17 GM PACKET PO (08:25)
[2018-10-16] MEDS: LEVETIRACETAM 500 MG TAB PO ×2 (08:25→20:13)
[2018-10-16] MEDS: ACETAMINOPHEN 650MG/20.3ML CUP PO (08:26)
[2018-10-16] MEDS: INSULIN ASPART [NOVOLOG] 3 ML PEN SC ×7 (08:32→20:13)
[2018-10-16] MEDS: GUAIFENESIN 20 MG/ML 5ML CUP PO ×2 (13:09→18:37)
[2018-10-16] MEDS: HYDROCODONE/APAP (5/325) TAB PO ×2 (13:09→18:38)
[2018-10-16] MEDS: INSULIN GLARGINE [LANTus] (100 UNITS/ML) SYG SC (20:17)
[2018-10-17] MEDS: PIPER-TAZO 3.375 GM IV (PMX) 100 ML IVPB ×4 (00:52→19:41)
[2018-10-17] MEDS: AL HYDROX/MG HYDROX/SIMETH 30 ML CUP PO (00:54)
[2018-10-17 03:17] LABS: ADD MAN DIFF? NO
[2018-10-17 03:18] LABS: ABNORMAL IP MESSAGE 1; BASOPHILS % 0.3 % (0.0-2.0); HEMATOCRIT 30.5 % (37.0-47.0); HEMOGLOBIN 10.5 g/dl (12.0-16.0); LYMPHOCYTES # 0.9 10^3/ul (0.8-2.9); LYMPHOCYTES % 22.2 % (15.0-51.0); MEAN CORPUSCULAR HEMOGLOBIN 32.2 pg (29.0-33.0); MEAN CORPUSCULAR HGB CONC 34.4 g/dl (32.0-37.0); MEAN CORPUSCULAR VOLUME 93.6 fl (82.0-101.0); MEAN PLATELET VOLUME 11.7 fl (7.4-10.4); MONOCYTE # 0.2 10^3/ul (0.3-0.9); MONOCYTES % 4.3 % (0.0-11.0); NEUTROPHIL # 2.8 10^3/ul (1.6-7.5); NEUTROPHILS % 69.2 % (39.0-77.0); NUCLEATED RED BLOOD CELLS # 0.1 10^3/ul (0.0-0.0); NUCLEATED RED BLOOD CELLS% 1.3 /100WBC (0.0-0.0); PLATELET COUNT 63 10^3/UL (140-415); RED BLOOD COUNT 3.26 10^6/ul (4.20-5.40); RED CELL DISTRIBUTION WIDTH 14.8 % (11.5-14.5)
[2018-10-17 03:39] LABS: POSITIVE DIFF @See below
[2018-10-17 03:42] LABS: ANION GAP 9 (5-13); BLOOD UREA NITROGEN 24 mg/dl (7-20); CALCIUM 9.4 mg/dl (8.4-10.2); CARBON DIOXIDE 24 mmol/L (21-31); CHLORIDE 100 mmol/L (97-110); CREATININE 0.47 mg/dl (0.44-1.00); Estimated GFR > 60 mL/min (>60); GLUCOSE 178 mg/dl (70-220); SODIUM 133 mmol/L (135-144)
[2018-10-17 03:46] LABS: VANCOMYCIN,TROUGH 16.6 ug/ml (10.0-20.0)
[2018-10-17] MEDS: VANCOMYCIN 1.5 GM in SOD CHLORIDE 0.9% 250 ML IVPB (03:51)
[2018-10-17 04:05] LABS: POTASSIUM 4.4 mmol/L (3.5-5.1)
[2018-10-17] MEDS: GUAIFENESIN 20 MG/ML 5ML CUP PO (05:12)
[2018-10-17] MEDS: HYDROCODONE/APAP (5/325) TAB PO ×4 (05:12→20:43)
[2018-10-17] MEDS: INSULIN ASPART [NOVOLOG] 3 ML PEN SC ×7 (08:00→20:37)
[2018-10-17] MEDS: POLYETHYLENE GLYCOL 17 GM PACKET PO (09:04)
[2018-10-17] MEDS: LEVETIRACETAM 500 MG TAB PO ×2 (09:05→20:39)
[2018-10-17] MEDS: PANTOPRAZOLE (EC) 40 MG TAB PO ×2 (09:05→20:39)
[2018-10-17] MEDS: DEXAMETHASONE 10 MG/ML 1 ML INJ IV ×2 (09:05→21:56)
[2018-10-17] MEDS: VANCOMYCIN HCL 1.25 GM in SOD CHLORIDE 0.9% 250 ML IVPB (16:05)
[2018-10-17] MEDS: ACETAMINOPHEN 650MG/20.3ML CUP PO (20:39)
[2018-10-17] MEDS: INSULIN GLARGINE [LANTus] (100 UNITS/ML) SYG SC (20:46)
[2018-10-18] MEDS: PIPER-TAZO 3.375 GM IV (PMX) 100 ML IVPB ×4 (01:06→20:14)
[2018-10-18] MEDS: VANCOMYCIN HCL 1.25 GM in SOD CHLORIDE 0.9% 250 ML IVPB ×2 (03:49→16:41)
[2018-10-18 06:36] LABS: WHITE BLOOD COUNT 4.2 10^3/ul (4.8-10.8)
[2018-10-18 06:36] LABS: ABNORMAL IP MESSAGE 1; HEMATOCRIT 29.8 % (37.0-47.0); HEMOGLOBIN 10.7 g/dl (12.0-16.0); MEAN CORPUSCULAR HEMOGLOBIN 32.7 pg (29.0-33.0); MEAN CORPUSCULAR HGB CONC 35.9 g/dl (32.0-37.0); MEAN CORPUSCULAR VOLUME 91.1 fl (82.0-101.0); NUCLEATED RED BLOOD CELLS% 2.6 /100WBC (0.0-0.0); PLATELET COUNT 60 10^3/UL (140-415); RED BLOOD COUNT 3.27 10^6/ul (4.20-5.40); RED CELL DISTRIBUTION WIDTH 15.3 % (11.5-14.5)
[2018-10-18 06:37] LABS: POSITIVE DIFF @See below
[2018-10-18 06:38] LABS: ADD MAN DIFF? YES
[2018-10-18 06:52] LABS: ANION GAP 13 (5-13); BLOOD UREA NITROGEN 21 mg/dl (7-20); CALCIUM 9.3 mg/dl (8.4-10.2); CARBON DIOXIDE 27 mmol/L (21-31); CHLORIDE 96 mmol/L (97-110); Estimated GFR > 60 mL/min (>60); GLUCOSE 167 mg/dl (70-220); MAGNESIUM 2.2 mg/dl (1.7-2.5); PHOSPHORUS 4.6 mg/dl (2.5-4.9); POTASSIUM 4.2 mmol/L (3.5-5.1); SODIUM 136 mmol/L (135-144)
[2018-10-18] MEDS: HYDROCODONE/APAP (5/325) TAB PO ×3 (07:42→20:13)
[2018-10-18] MEDS: INSULIN ASPART [NOVOLOG] 3 ML PEN SC ×7 (07:47→21:00)
[2018-10-18] MEDS: DEXAMETHASONE 10 MG/ML 1 ML INJ IV ×2 (08:37→20:59)
[2018-10-18] MEDS: LEVETIRACETAM 500 MG TAB PO ×2 (08:37→21:00)
[2018-10-18] MEDS: PANTOPRAZOLE (EC) 40 MG TAB PO ×2 (08:37→21:00)
[2018-10-18] MEDS: POLYETHYLENE GLYCOL 17 GM PACKET PO (08:37)
[2018-10-18] MEDS: TRIMETHOPRIM/SULFAMETHOX (DS) TAB PO (08:41)
[2018-10-18 09:12] LABS: ANISOCYTOSIS 1+ (0-0); BAND NEUTROPHILS #M 0.1 10^3/ul (0.0-0.6); BAND NEUTROPHILS % (M) 4 % (0-4); ERYTHROBLAST% (NRBC) (M) 6 % (0-0); HYPOCHROMASIA 2+ (0-0); LYMPHOCYTES % (M) 26 % (15-51); METAMYELOCYTES %M 1 % (0-0); MONOCYTE #M 0.2 10^3/ul (0.3-0.9); MONOCYTES % (M) 5 % (0-11); MYELOCYTES #M 0.1 10^3/ul (0.0-0.0); MYELOCYTES % (M) 3 % (0-0); PLATELET ESTIMATE INCREASED; POLYCHROMASIA 1+ (0-0); SEG NEUT #M 2.6 10^3/ul (1.6-7.5); SEGMENTED NEUTROPHILS (M) % 61 % (39-77); SMUDGE%M 3 % (0-0)
[2018-10-18] MEDS: ONDANSETRON 4 MG INJ IV (12:24)
[2018-10-18] MEDS: INSULIN GLARGINE [LANTus] (100 UNITS/ML) SYG SC (21:24)
[2018-10-19] MEDS: PIPER-TAZO 3.375 GM IV (PMX) 100 ML IVPB ×3 (01:31→12:39)
[2018-10-19 03:56] LABS: VANCOMYCIN,TROUGH 11.5 ug/ml (10.0-20.0)
[2018-10-19] MEDS: VANCOMYCIN HCL 1.25 GM in SOD CHLORIDE 0.9% 250 ML IVPB (04:19)
[2018-10-19] MEDS: GUAIFENESIN 20 MG/ML 5ML CUP PO ×2 (06:03→17:39)
[2018-10-19] MEDS: HYDROCODONE/APAP (5/325) TAB PO ×2 (06:03→17:50)
[2018-10-19] MEDS: INSULIN ASPART [NOVOLOG] 3 ML PEN SC ×7 (08:00→20:46)
[2018-10-19] MEDS: POLYETHYLENE GLYCOL 17 GM PACKET PO (08:35)
[2018-10-19] MEDS: PANTOPRAZOLE (EC) 40 MG TAB PO ×2 (08:35→20:45)
[2018-10-19] MEDS: LEVETIRACETAM 500 MG TAB PO ×2 (08:35→20:45)
[2018-10-19] MEDS: DEXAMETHASONE 10 MG/ML 1 ML INJ IV ×2 (08:35→20:45)
[2018-10-19] MEDS: LIDOCAINE 1% (MPF) 5 ML VIAL (13:31)
[2018-10-19] MEDS: METHOTREXATE IT (15:31)
[2018-10-19] MEDS: SOD CHLORIDE 0.9% IT (15:31)
[2018-10-19] MEDS: HYDROCORTISONE IT (15:31)
[2018-10-19] MEDS: INSULIN GLARGINE [LANTus] (100 UNITS/ML) SYG SC (21:00)
[2018-10-20] MEDS: HYDROCODONE/APAP (5/325) TAB PO (01:03)
[2018-10-20 05:25] LABS: ADD MAN DIFF? NO
[2018-10-20 05:34] LABS: ABNORMAL IP MESSAGE 1; HEMOGLOBIN 10.7 g/dl (12.0-16.0); MEAN CORPUSCULAR HEMOGLOBIN 32.4 pg (29.0-33.0); MEAN CORPUSCULAR HGB CONC 36.9 g/dl (32.0-37.0); MEAN CORPUSCULAR VOLUME 87.9 fl (82.0-101.0); MEAN PLATELET VOLUME 10.5 fl (7.4-10.4); NUCLEATED RED BLOOD CELLS% 3.8 /100WBC (0.0-0.0); PLATELET COUNT 43 10^3/UL (140-415); RED CELL DISTRIBUTION WIDTH 15.7 % (11.5-14.5)
[2018-10-20 05:34] LABS: WHITE BLOOD COUNT 5.3 10^3/ul (4.8-10.8)
[2018-10-20 05:49] LABS: POSITIVE DIFF @See below
[2018-10-20 05:57] LABS: ANION GAP 14 (5-13); BLOOD UREA NITROGEN 18 mg/dl (7-20); CALCIUM 9.2 mg/dl (8.4-10.2); CARBON DIOXIDE 27 mmol/L (21-31); CHLORIDE 94 mmol/L (97-110); CREATININE 0.47 mg/dl (0.44-1.00); Estimated GFR > 60 mL/min (>60); GLUCOSE 145 mg/dl (70-220); POTASSIUM 4.2 mmol/L (3.5-5.1); SODIUM 135 mmol/L (135-144)
[2018-10-20 06:02] LABS: MAGNESIUM 2.3 mg/dl (1.7-2.5)
[2018-10-20 06:02] LABS: PHOSPHORUS 4.4 mg/dl (2.5-4.9)
[2018-10-20 07:42] LABS: ANISOCYTOSIS 2+ (0-0); BAND NEUTROPHILS #M 0.4 10^3/ul (0.0-0.6); BAND NEUTROPHILS % (M) 9 % (0-4); EOSINOPHILS % (M) 1 % (0-7); ERYTHROBLAST% (NRBC) (M) 4 % (0-0); HYPOCHROMASIA 2+ (0-0); LYMPHOCYTES #M 1.4 10^3/ul (0.8-2.9); LYMPHOCYTES % (M) 27 % (15-51); MONOCYTE #M 0.2 10^3/ul (0.3-0.9); MONOCYTES % (M) 5 % (0-11); MYELOCYTES % (M) 1 % (0-0); PLATELET ESTIMATE DECREASED; SEGMENTED NEUTROPHILS (M) % 57 % (39-77); SMUDGE%M 7 % (0-0); TARGET CELLS 1+ (0-0)
[2018-10-20] MEDS: INSULIN ASPART [NOVOLOG] 3 ML PEN SC ×7 (08:00→21:00)
[2018-10-20] MEDS: POLYETHYLENE GLYCOL 17 GM PACKET PO (08:35)
[2018-10-20] MEDS: LEVETIRACETAM 500 MG TAB PO ×2 (08:35→21:30)
[2018-10-20] MEDS: PANTOPRAZOLE (EC) 40 MG TAB PO ×2 (08:35→21:30)
[2018-10-20] MEDS: DEXAMETHASONE 4 MG TAB PO ×2 (08:35→21:30)
[2018-10-20] MEDS: TRIMETHOPRIM/SULFAMETHOX (DS) TAB PO (08:40)
[2018-10-20] MEDS: HYDROCORTISONE IT (13:00)
[2018-10-20] MEDS: SOD CHLORIDE 0.9% IT (13:00)
[2018-10-20] MEDS: METHOTREXATE IT (13:00)
[2018-10-20] MEDS: AL HYDROX/MG HYDROX/SIMETH 30 ML CUP PO (15:30)
[2018-10-20 17:07] LABS: TYPE AND SCREEN 1 1
[2018-10-20] MEDS: SENNA TAB PO (18:15)
[2018-10-20] MEDS: ACETAMINOPHEN 650MG/20.3ML CUP PO (18:15)
[2018-10-20] MEDS: INSULIN GLARGINE [LANTus] (100 UNITS/ML) SYG SC (21:31)
[2018-10-21] MEDS: hydrALAzine 20 MG INJ IV (01:54)
[2018-10-21] MEDS: ONDANSETRON 4 MG INJ IV ×2 (02:22→09:20)
[2018-10-21] MEDS: HYDROCODONE/APAP (5/325) TAB PO (02:26)
[2018-10-21 05:15] LABS: ABNORMAL IP MESSAGE 1; HEMATOCRIT 27.1 % (37.0-47.0); HEMOGLOBIN 9.9 g/dl (12.0-16.0); MEAN CORPUSCULAR HEMOGLOBIN 32.9 pg (29.0-33.0); MEAN CORPUSCULAR HGB CONC 36.5 g/dl (32.0-37.0); MEAN PLATELET VOLUME 10.5 fl (7.4-10.4); NUCLEATED RED BLOOD CELLS% 5.6 /100WBC (0.0-0.0); PLATELET COUNT 73 10^3/UL (140-415); RED BLOOD COUNT 3.01 10^6/ul (4.20-5.40); RED CELL DISTRIBUTION WIDTH 16.2 % (11.5-14.5)
[2018-10-21 05:15] LABS: WHITE BLOOD COUNT 1.6 10^3/ul (4.8-10.8)
[2018-10-21 05:41] LABS: ADD MAN DIFF? YES; POSITIVE DIFF @See below
[2018-10-21 05:43] LABS: PHOSPHORUS 4.4 mg/dl (2.5-4.9)
[2018-10-21 05:43] LABS: MAGNESIUM 2.4 mg/dl (1.7-2.5)
[2018-10-21 05:52] LABS: ANION GAP 13 (5-13); BLOOD UREA NITROGEN 21 mg/dl (7-20); CALCIUM 9.3 mg/dl (8.4-10.2); CARBON DIOXIDE 26 mmol/L (21-31); CHLORIDE 95 mmol/L (97-110); CREATININE 0.51 mg/dl (0.44-1.00); Estimated GFR > 60 mL/min (>60); GLUCOSE 124 mg/dl (70-220); SODIUM 134 mmol/L (135-144)
[2018-10-21 07:28] LABS: ANISOCYTOSIS 2+ (0-0); BAND NEUTROPHILS #M 0.1 10^3/ul (0.0-0.6); BAND NEUTROPHILS % (M) 9 % (0-4); ERYTHROBLAST% (NRBC) (M) 7 % (0-0); GIANT THROMBO% (M) 1 % (0-0); HYPOCHROMASIA 2+ (0-0); LYMPHOCYTES #M 0.9 10^3/ul (0.8-2.9); LYMPHOCYTES % (M) 57 % (15-51); METAMYELOCYTES %M 4 % (0-0); PLATELET ESTIMATE SIG DECREASED; POLYCHROMASIA 2+ (0-0); REACTIVE LYMPHOCYTES% (M) 1 % (0-0); SEG NEUT #M 0.5 10^3/ul (1.6-7.5); SEGMENTED NEUTROPHILS (M) % 29 % (39-77); SMUDGE%M 12 % (0-0); TARGET CELLS 2+ (0-0)
[2018-10-21] MEDS: INSULIN ASPART [NOVOLOG] 3 ML PEN SC ×7 (08:00→21:00)
[2018-10-21] MEDS: LEVETIRACETAM 500 MG TAB PO ×2 (09:20→21:00)
[2018-10-21] MEDS: POLYETHYLENE GLYCOL 17 GM PACKET PO (09:20)
[2018-10-21] MEDS: DEXAMETHASONE 4 MG TAB PO ×2 (09:20→21:00)
[2018-10-21] MEDS: PANTOPRAZOLE (EC) 40 MG TAB PO ×2 (09:20→21:00)
[2018-10-21] MEDS: DIPHENHYDRAMINE 25 MG CAP PO (13:04)
[2018-10-21 13:50] LABS: ALANINE AMINOTRANSFERASE 477 IU/L (13-69); ALBUMIN 3.4 g/dl (3.3-4.9); ALKALINE PHOSPHATASE 1412 IU/L (42-121); ASPARTATE AMINO TRANSFERASE 448 IU/L (15-46); BILIRUBIN,INDIRECT 1.6 mg/dl (0-1.1); BILIRUBIN,TOTAL 8.1 mg/dl (0.2-1.3)
[2018-10-21] MEDS: ACETAMINOPHEN 650MG/20.3ML CUP PO (17:59)
[2018-10-21] MEDS: GUAIFENESIN 20 MG/ML 5ML CUP PO (18:00)
[2018-10-21] MEDS: INSULIN GLARGINE [LANTus] (100 UNITS/ML) SYG SC (20:00)
[2018-10-22] MEDS: PANTOPRAZOLE (EC) 40 MG TAB PO ×3 (01:08→21:26)
[2018-10-22] MEDS: LEVETIRACETAM 500 MG TAB PO ×3 (01:08→21:26)
[2018-10-22] MEDS: DEXAMETHASONE 4 MG TAB PO ×3 (01:08→21:26)
[2018-10-22] MEDS: ACETAMINOPHEN 650MG/20.3ML CUP PO (01:14)
[2018-10-22] MEDS: POLYETHYLENE GLYCOL 17 GM PACKET PO (08:19)
[2018-10-22] MEDS: INSULIN ASPART [NOVOLOG] 3 ML PEN SC ×7 (08:22→21:00)
[2018-10-22] MEDS: GUAIFENESIN 20 MG/ML 5ML CUP PO ×2 (08:24→21:37)
[2018-10-22] MEDS: TRIMETHOPRIM/SULFAMETHOX (DS) TAB PO (08:24)
[2018-10-22 08:38] LABS: WHITE BLOOD COUNT 2.7 10^3/ul (4.8-10.8)
[2018-10-22 08:38] LABS: ABNORMAL IP MESSAGE 1; HEMATOCRIT 26.4 % (37.0-47.0); HEMOGLOBIN 9.5 g/dl (12.0-16.0); MEAN CORPUSCULAR HEMOGLOBIN 32.2 pg (29.0-33.0); MEAN CORPUSCULAR VOLUME 89.5 fl (82.0-101.0); MEAN PLATELET VOLUME 11.8 fl (7.4-10.4); NUCLEATED RED BLOOD CELLS% 1.1 /100WBC (0.0-0.0); PLATELET COUNT 60 10^3/UL (140-415); RED BLOOD COUNT 2.95 10^6/ul (4.20-5.40); RED CELL DISTRIBUTION WIDTH 17.1 % (11.5-14.5)
[2018-10-22 08:43] LABS: ANION GAP 10 (5-13); BLOOD UREA NITROGEN 22 mg/dl (7-20); CARBON DIOXIDE 28 mmol/L (21-31); CHLORIDE 95 mmol/L (97-110); CREATININE 0.51 mg/dl (0.44-1.00); Estimated GFR > 60 mL/min (>60); GLUCOSE 144 mg/dl (70-220); POTASSIUM 3.9 mmol/L (3.5-5.1); SODIUM 133 mmol/L (135-144)
[2018-10-22 08:54] LABS: ADD MAN DIFF? YES; POSITIVE DIFF @See below
[2018-10-22 08:55] LABS: MAGNESIUM 2.3 mg/dl (1.7-2.5)
[2018-10-22 10:05] LABS: ANISOCYTOSIS 2+ (0-0); BAND NEUTROPHILS #M 0.2 10^3/ul (0.0-0.6); BAND NEUTROPHILS % (M) 11 % (0-4); ERYTHROBLAST% (NRBC) (M) 1 % (0-0); GIANT THROMBO% (M) 1 % (0-0); LYMPHOCYTES % (M) 40 % (15-51); MONOCYTES % (M) 2 % (0-11); MYELOCYTES % (M) 1 % (0-0); PLATELET ESTIMATE DECREASED; POLYCHROMASIA 1+ (0-0); PROMYELOCYTES % (M) 1 % (0-0); SEG NEUT #M 1.2 10^3/ul (1.6-7.5); SEGMENTED NEUTROPHILS (M) % 45 % (39-77); SMUDGE%M 4 % (0-0); TARGET CELLS 2+ (0-0)
[2018-10-22] MEDS: HYDROCODONE/APAP (5/325) TAB PO ×2 (10:44→20:03)
[2018-10-22] MEDS: INSULIN GLARGINE [LANTus] (100 UNITS/ML) SYG SC (21:33)
[2018-10-23] MEDS ORDERED: VITAMIN A & D 5 GM OINT PACKET TOP (01:34)
[2018-10-23] MEDS: HYDROCODONE/APAP (5/325) TAB PO ×2 (01:40→21:06)
[2018-10-23 07:01] LABS: ADD MAN DIFF? NO
[2018-10-23 07:10] LABS: ABNORMAL IP MESSAGE 1; HEMATOCRIT 26.2 % (37.0-47.0); HEMOGLOBIN 9.4 g/dl (12.0-16.0); LYMPHOCYTES # 0.9 10^3/ul (0.8-2.9); LYMPHOCYTES % 34.3 % (15.0-51.0); MEAN CORPUSCULAR HEMOGLOBIN 32.2 pg (29.0-33.0); MEAN CORPUSCULAR HGB CONC 35.9 g/dl (32.0-37.0); MEAN CORPUSCULAR VOLUME 89.7 fl (82.0-101.0); MEAN PLATELET VOLUME 11.2 fl (7.4-10.4); MONOCYTE # 0.1 10^3/ul (0.3-0.9); NEUTROPHIL # 1.6 10^3/ul (1.6-7.5); NEUTROPHILS % 61.2 % (39.0-77.0); PLATELET COUNT 58 10^3/UL (140-415); RED BLOOD COUNT 2.92 10^6/ul (4.20-5.40); RED CELL DISTRIBUTION WIDTH 16.7 % (11.5-14.5)
[2018-10-23 07:10] LABS: WHITE BLOOD COUNT 2.7 10^3/ul (4.8-10.8)
[2018-10-23 07:14] LABS: POSITIVE DIFF @See below
[2018-10-23 07:25] LABS: ALANINE AMINOTRANSFERASE 408 IU/L (13-69); ALBUMIN 3.3 g/dl (3.3-4.9); ASPARTATE AMINO TRANSFERASE 330 IU/L (15-46); BILIRUBIN,INDIRECT 1.2 mg/dl (0-1.1); BILIRUBIN,TOTAL 9.2 mg/dl (0.2-1.3); TOTAL PROTEIN 5.8 g/dl (6.1-8.1)
[2018-10-23 07:31] LABS: ANION GAP 10 (5-13); BLOOD UREA NITROGEN 23 mg/dl (7-20); CALCIUM 8.9 mg/dl (8.4-10.2); CARBON DIOXIDE 26 mmol/L (21-31); CHLORIDE 92 mmol/L (97-110); CREATININE 0.58 mg/dl (0.44-1.00); Estimated GFR > 60 mL/min (>60); GLUCOSE 113 mg/dl (70-220); SODIUM 128 mmol/L (135-144)
[2018-10-23 07:32] LABS: PHOSPHORUS 4.4 mg/dl (2.5-4.9)
[2018-10-23 07:32] LABS: MAGNESIUM 2.3 mg/dl (1.7-2.5)
[2018-10-23 07:33] LABS: ALKALINE PHOSPHATASE 1653 IU/L (42-121)
[2018-10-23] MEDS: INSULIN ASPART [NOVOLOG] 3 ML PEN SC ×7 (08:00→20:56)
[2018-10-23] MEDS: DEXAMETHASONE 4 MG TAB PO ×2 (09:33→20:55)
[2018-10-23] MEDS: POLYETHYLENE GLYCOL 17 GM PACKET PO (09:33)
[2018-10-23] MEDS: PANTOPRAZOLE (EC) 40 MG TAB PO ×2 (09:33→20:52)
[2018-10-23] MEDS: LEVETIRACETAM 500 MG TAB PO ×2 (09:33→20:52)
[2018-10-23] MEDS: DIPHENHYDRAMINE 25 MG CAP PO ×2 (11:24→17:45)
[2018-10-23] MEDS: GUAIFENESIN 20 MG/ML 5ML CUP PO ×2 (17:45→22:49)
[2018-10-23] MEDS: INSULIN GLARGINE [LANTus] (100 UNITS/ML) SYG SC (20:58)
[2018-10-24] MEDS: DIPHENHYDRAMINE 25 MG CAP PO (02:05)
[2018-10-24] MEDS: GUAIFENESIN 20 MG/ML 5ML CUP PO ×2 (05:16→12:41)
[2018-10-24 06:03] LABS: ADD MAN DIFF? NO
[2018-10-24 06:09] LABS: WHITE BLOOD COUNT 2.6 10^3/ul (4.8-10.8)
[2018-10-24 06:10] LABS: ABNORMAL IP MESSAGE 1; HEMATOCRIT 25.1 % (37.0-47.0); HEMOGLOBIN 8.9 g/dl (12.0-16.0); LYMPHOCYTES # 0.9 10^3/ul (0.8-2.9); MEAN CORPUSCULAR HEMOGLOBIN 31.6 pg (29.0-33.0); MEAN CORPUSCULAR HGB CONC 35.5 g/dl (32.0-37.0); MEAN PLATELET VOLUME 11.7 fl (7.4-10.4); MONOCYTE # 0.1 10^3/ul (0.3-0.9); MONOCYTES % 3.5 % (0.0-11.0); NEUTROPHIL # 1.6 10^3/ul (1.6-7.5); NEUTROPHILS % 61.3 % (39.0-77.0); NUCLEATED RED BLOOD CELLS% 1.2 /100WBC (0.0-0.0); PLATELET COUNT 40 10^3/UL (140-415); RED BLOOD COUNT 2.82 10^6/ul (4.20-5.40)
[2018-10-24 06:46] LABS: PHOSPHORUS 4.2 mg/dl (2.5-4.9)
[2018-10-24 06:46] LABS: MAGNESIUM 2.3 mg/dl (1.7-2.5)
[2018-10-24 06:48] LABS: POSITIVE DIFF @See below
[2018-10-24 06:51] LABS: ALANINE AMINOTRANSFERASE 341 IU/L (13-69); ALBUMIN 3.1 g/dl (3.3-4.9); ALBUMIN/GLOBULIN RATIO 1.14; ALKALINE PHOSPHATASE 1464 IU/L (42-121); ANION GAP 11 (5-13); ASPARTATE AMINO TRANSFERASE 298 IU/L (15-46); BILIRUBIN,INDIRECT 1.3 mg/dl (0-1.1); BILIRUBIN,TOTAL 10.1 mg/dl (0.2-1.3); BLOOD UREA NITROGEN 21 mg/dl (7-20); CALCIUM 8.6 mg/dl (8.4-10.2); CARBON DIOXIDE 24 mmol/L (21-31); CHLORIDE 94 mmol/L (97-110); CREATININE 0.48 mg/dl (0.44-1.00); Estimated GFR > 60 mL/min (>60); GLUCOSE 105 mg/dl (70-220); POTASSIUM 3.8 mmol/L (3.5-5.1); SODIUM 129 mmol/L (135-144); TOTAL PROTEIN 5.8 g/dl (6.1-8.1)
[2018-10-24] MEDS: INSULIN ASPART [NOVOLOG] 3 ML PEN SC ×7 (08:00→21:00)
[2018-10-24] MEDS: POLYETHYLENE GLYCOL 17 GM PACKET PO (09:27)
[2018-10-24] MEDS: PANTOPRAZOLE (EC) 40 MG TAB PO ×2 (09:27→21:36)
[2018-10-24] MEDS: LEVETIRACETAM 500 MG TAB PO ×2 (09:27→21:36)
[2018-10-24] MEDS: DEXAMETHASONE 2 MG TAB PO ×2 (09:56→21:36)
[2018-10-24] MEDS: HYDROCODONE/APAP (5/325) TAB PO ×2 (12:41→21:36)
[2018-10-24] MEDS: INSULIN GLARGINE [LANTus] (100 UNITS/ML) SYG SC (21:35)
[2018-10-25] MEDS: GUAIFENESIN 20 MG/ML 5ML CUP PO ×2 (01:44→09:09)
[2018-10-25] MEDS: DIPHENHYDRAMINE 25 MG CAP PO ×2 (04:54→12:59)
[2018-10-25 05:41] LABS: ADD MAN DIFF? NO
[2018-10-25 05:51] LABS: ABNORMAL IP MESSAGE 1; BASOPHILS % 0.3 % (0.0-2.0); HEMATOCRIT 26.3 % (37.0-47.0); HEMOGLOBIN 9.4 g/dl (12.0-16.0); LYMPHOCYTES # 1.4 10^3/ul (0.8-2.9); LYMPHOCYTES % 36.1 % (15.0-51.0); MEAN CORPUSCULAR HEMOGLOBIN 31.8 pg (29.0-33.0); MEAN CORPUSCULAR HGB CONC 35.7 g/dl (32.0-37.0); MEAN CORPUSCULAR VOLUME 88.9 fl (82.0-101.0); MEAN PLATELET VOLUME 11.6 fl (7.4-10.4); MONOCYTE # 0.1 10^3/ul (0.3-0.9); MONOCYTES % 2.9 % (0.0-11.0); NEUTROPHIL # 2.2 10^3/ul (1.6-7.5); NEUTROPHILS % 58.8 % (39.0-77.0); NUCLEATED RED BLOOD CELLS% 1.1 /100WBC (0.0-0.0); PLATELET COUNT 40 10^3/UL (140-415); RED BLOOD COUNT 2.96 10^6/ul (4.20-5.40); RED CELL DISTRIBUTION WIDTH 17.1 % (11.5-14.5)
[2018-10-25 05:51] LABS: WHITE BLOOD COUNT 3.7 10^3/ul (4.8-10.8)
[2018-10-25 06:02] LABS: ALANINE AMINOTRANSFERASE 344 IU/L (13-69); ALBUMIN 3.3 g/dl (3.3-4.9); ANION GAP 12 (5-13); ASPARTATE AMINO TRANSFERASE 331 IU/L (15-46); BILIRUBIN,INDIRECT 1.5 mg/dl (0-1.1); BILIRUBIN,TOTAL 11.4 mg/dl (0.2-1.3); BLOOD UREA NITROGEN 21 mg/dl (7-20); CARBON DIOXIDE 25 mmol/L (21-31); CHLORIDE 92 mmol/L (97-110); CREATININE 0.52 mg/dl (0.44-1.00); Estimated GFR > 60 mL/min (>60); GLUCOSE 100 mg/dl (70-220); POTASSIUM 4.1 mmol/L (3.5-5.1); SODIUM 129 mmol/L (135-144); TOTAL PROTEIN 6.3 g/dl (6.1-8.1)
[2018-10-25 06:06] LABS: POSITIVE DIFF @See below
[2018-10-25 06:09] LABS: ALKALINE PHOSPHATASE 1816 IU/L (42-121)
[2018-10-25 06:13] LABS: PHOSPHORUS 4.4 mg/dl (2.5-4.9)
[2018-10-25 06:13] LABS: MAGNESIUM 2.3 mg/dl (1.7-2.5)
[2018-10-25] MEDS: INSULIN ASPART [NOVOLOG] 3 ML PEN SC ×7 (08:00→21:00)
[2018-10-25] MEDS: HYDROCODONE/APAP (5/325) TAB PO ×2 (09:09→21:00)
[2018-10-25] MEDS: POLYETHYLENE GLYCOL 17 GM PACKET PO (09:10)
[2018-10-25] MEDS: LEVETIRACETAM 500 MG TAB PO ×2 (09:10→20:50)
[2018-10-25] MEDS: DEXAMETHASONE 2 MG TAB PO ×2 (09:10→20:50)
[2018-10-25] MEDS: PANTOPRAZOLE (EC) 40 MG TAB PO ×2 (09:10→20:50)
[2018-10-25] MEDS: TRIMETHOPRIM/SULFAMETHOX (DS) TAB PO (09:13)
[2018-10-25] MEDS ORDERED: HYDROCORTISONE IT (11:00)
[2018-10-25] MEDS ORDERED: METHOTREXATE IT (11:00)
[2018-10-25] MEDS ORDERED: SOD CHLORIDE 0.9% IT (11:00)
[2018-10-25] MEDS: ONDANSETRON INJ 8 MG in SOD CHLORIDE 0.9% 50 ML IV ×2 (12:59→21:02)
[2018-10-25] MEDS: INSULIN GLARGINE [LANTus] (100 UNITS/ML) SYG SC (21:40)
[2018-10-26] MEDS: GUAIFENESIN 20 MG/ML 5ML CUP PO (03:36)
[2018-10-26] MEDS: DIPHENHYDRAMINE 25 MG CAP PO ×2 (03:45→17:51)
[2018-10-26] MEDS: HYDROCODONE/APAP (5/325) TAB PO ×3 (03:56→21:17)
[2018-10-26] MEDS: AL HYDROX/MG HYDROX/SIMETH 30 ML CUP PO (06:20)
[2018-10-26] MEDS: INSULIN ASPART [NOVOLOG] 3 ML PEN SC ×6 (08:00→21:00)
[2018-10-26] MEDS: POLYETHYLENE GLYCOL 17 GM PACKET PO (08:42)
[2018-10-26] MEDS: LEVETIRACETAM 500 MG TAB PO ×2 (08:43→21:01)
[2018-10-26] MEDS: PANTOPRAZOLE (EC) 40 MG TAB PO ×2 (08:43→21:01)
[2018-10-26 09:23] LABS: ADD MAN DIFF? NO
[2018-10-26 09:40] LABS: WHITE BLOOD COUNT 2.8 10^3/ul (4.8-10.8)
[2018-10-26 09:40] LABS: ABNORMAL IP MESSAGE 1; BASOPHILS % 0.4 % (0.0-2.0); HEMATOCRIT 26.4 % (37.0-47.0); HEMOGLOBIN 9.3 g/dl (12.0-16.0); LYMPHOCYTES # 1.2 10^3/ul (0.8-2.9); LYMPHOCYTES % 42.1 % (15.0-51.0); MEAN CORPUSCULAR HEMOGLOBIN 31.8 pg (29.0-33.0); MEAN CORPUSCULAR HGB CONC 35.2 g/dl (32.0-37.0); MEAN CORPUSCULAR VOLUME 90.4 fl (82.0-101.0); MONOCYTE # 0.1 10^3/ul (0.3-0.9); MONOCYTES % 2.9 % (0.0-11.0); NEUTROPHIL # 1.5 10^3/ul (1.6-7.5); NEUTROPHILS % 52.1 % (39.0-77.0); NUCLEATED RED BLOOD CELLS # 0.1 10^3/ul (0.0-0.0); NUCLEATED RED BLOOD CELLS% 2.1 /100WBC (0.0-0.0); RED BLOOD COUNT 2.92 10^6/ul (4.20-5.40); RED CELL DISTRIBUTION WIDTH 17.2 % (11.5-14.5)
[2018-10-26 09:42] LABS: POSITIVE DIFF @See below
[2018-10-26 09:44] LABS: PLATELET COUNT 25 10^3/UL (140-415)
[2018-10-26 10:02] LABS: ALANINE AMINOTRANSFERASE 299 IU/L (13-69); ALBUMIN 3.2 g/dl (3.3-4.9); ALBUMIN/GLOBULIN RATIO 1.03; ANION GAP 15 (5-13); ASPARTATE AMINO TRANSFERASE 319 IU/L (15-46); BILIRUBIN,INDIRECT 1.5 mg/dl (0-1.1); BILIRUBIN,TOTAL 13.1 mg/dl (0.2-1.3); BLOOD UREA NITROGEN 22 mg/dl (7-20); CALCIUM 8.8 mg/dl (8.4-10.2); CARBON DIOXIDE 21 mmol/L (21-31); CHLORIDE 91 mmol/L (97-110); CREATININE 0.61 mg/dl (0.44-1.00); Estimated GFR > 60 mL/min (>60); GLUCOSE 83 mg/dl (70-220); MAGNESIUM 2.3 mg/dl (1.7-2.5); PHOSPHORUS 4.3 mg/dl (2.5-4.9); POTASSIUM 3.3 mmol/L (3.5-5.1); SODIUM 127 mmol/L (135-144); TOTAL PROTEIN 6.3 g/dl (6.1-8.1)
[2018-10-26 10:10] LABS: ALKALINE PHOSPHATASE 1930 IU/L (42-121)
[2018-10-26] MEDS: SOD CHLORIDE 0.9% 250 ML IV* (14:23)
[2018-10-26] MEDS: INSULIN GLARGINE [LANTus] (100 UNITS/ML) SYG SC (21:06)
[2018-10-27] MEDS: DIPHENHYDRAMINE 25 MG CAP PO ×2 (00:28→08:31)
[2018-10-27] MEDS: INSULIN ASPART [NOVOLOG] 3 ML PEN SC ×7 (08:00→21:00)
[2018-10-27] MEDS: ONDANSETRON INJ 8 MG in SOD CHLORIDE 0.9% 50 ML IV ×2 (08:27→20:13)
[2018-10-27] MEDS: PANTOPRAZOLE (EC) 40 MG TAB PO ×2 (08:31→20:09)
[2018-10-27] MEDS: POLYETHYLENE GLYCOL 17 GM PACKET PO (08:31)
[2018-10-27] MEDS: HYDROCODONE/APAP (5/325) TAB PO ×2 (08:31→20:09)
[2018-10-27] MEDS: LEVETIRACETAM 500 MG TAB PO ×2 (08:31→20:09)
[2018-10-27] MEDS ORDERED: SOD CHLORIDE 0.9% IT (09:00)
[2018-10-27] MEDS ORDERED: METHOTREXATE IT (09:00)
[2018-10-27] MEDS ORDERED: HYDROCORTISONE IT (09:00)
[2018-10-27] MEDS: TRIMETHOPRIM/SULFAMETHOX (DS) TAB PO (10:05)
[2018-10-27] MEDS: AL HYDROX/MG HYDROX/SIMETH 30 ML CUP PO (18:02)
[2018-10-27] MEDS: INSULIN GLARGINE [LANTus] (100 UNITS/ML) SYG SC (21:59)
[2018-10-28 06:00] LABS: ADD MAN DIFF? NO
[2018-10-28 06:12] LABS: ABNORMAL IP MESSAGE 1; BASOPHILS % 0.4 % (0.0-2.0); HEMOGLOBIN 8.6 g/dl (12.0-16.0); LYMPHOCYTES # 0.9 10^3/ul (0.8-2.9); LYMPHOCYTES % 37.1 % (15.0-51.0); MEAN CORPUSCULAR HEMOGLOBIN 32.2 pg (29.0-33.0); MEAN CORPUSCULAR HGB CONC 35.8 g/dl (32.0-37.0); MEAN CORPUSCULAR VOLUME 89.9 fl (82.0-101.0); MONOCYTE # 0.1 10^3/ul (0.3-0.9); NEUTROPHIL # 1.5 10^3/ul (1.6-7.5); NEUTROPHILS % 57.7 % (39.0-77.0); NUCLEATED RED BLOOD CELLS% 1.6 /100WBC (0.0-0.0); RED BLOOD COUNT 2.67 10^6/ul (4.20-5.40); RED CELL DISTRIBUTION WIDTH 17.3 % (11.5-14.5)
[2018-10-28 06:12] LABS: WHITE BLOOD COUNT 2.5 10^3/ul (4.8-10.8)
[2018-10-28 06:31] LABS: MAGNESIUM 2.4 mg/dl (1.7-2.5)
[2018-10-28 06:40] LABS: ALANINE AMINOTRANSFERASE 258 IU/L (13-69); ALBUMIN/GLOBULIN RATIO 1.11; ANION GAP 14 (5-13); ASPARTATE AMINO TRANSFERASE 318 IU/L (15-46); BILIRUBIN,INDIRECT 1.4 mg/dl (0-1.1); BLOOD UREA NITROGEN 21 mg/dl (7-20); CALCIUM 9.2 mg/dl (8.4-10.2); CARBON DIOXIDE 20 mmol/L (21-31); CHLORIDE 93 mmol/L (97-110); CREATININE 0.58 mg/dl (0.44-1.00); Estimated GFR > 60 mL/min (>60); GLUCOSE 113 mg/dl (70-220); POTASSIUM 3.9 mmol/L (3.5-5.1); SODIUM 127 mmol/L (135-144); TOTAL PROTEIN 5.7 g/dl (6.1-8.1)
[2018-10-28 06:42] LABS: PLATELET COUNT 16 10^3/UL (140-415); POSITIVE DIFF @See below
[2018-10-28 06:54] LABS: ALKALINE PHOSPHATASE 2109 IU/L (42-121)
[2018-10-28] MEDS: INSULIN ASPART [NOVOLOG] 3 ML PEN SC ×7 (08:00→21:00)
[2018-10-28] MEDS: POLYETHYLENE GLYCOL 17 GM PACKET PO (08:24)
[2018-10-28] MEDS: LEVETIRACETAM 500 MG TAB PO ×2 (08:24→21:35)
[2018-10-28] MEDS: PANTOPRAZOLE (EC) 40 MG TAB PO ×2 (08:24→21:35)
[2018-10-28] MEDS: HYDROCODONE/APAP (5/325) TAB PO ×2 (08:25→20:27)
[2018-10-28] MEDS: DIPHENHYDRAMINE 25 MG CAP PO ×2 (14:07→22:54)
[2018-10-28] MEDS: ONDANSETRON 4 MG INJ IV (19:57)
[2018-10-28] MEDS: INSULIN GLARGINE [LANTus] (100 UNITS/ML) SYG SC (21:39)
[2018-10-29] MEDS: DIPHENHYDRAMINE 25 MG CAP PO ×2 (05:15→13:15)
[2018-10-29] MEDS: HYDROCODONE/APAP (5/325) TAB PO ×2 (05:15→19:52)
[2018-10-29] MEDS: INSULIN ASPART [NOVOLOG] 3 ML PEN SC ×6 (08:00→21:00)
[2018-10-29] MEDS: TRIMETHOPRIM/SULFAMETHOX (DS) TAB PO (08:23)
[2018-10-29] MEDS: LEVETIRACETAM 500 MG TAB PO ×2 (08:23→20:11)
[2018-10-29] MEDS: POLYETHYLENE GLYCOL 17 GM PACKET PO (08:24)
[2018-10-29] MEDS: PANTOPRAZOLE (EC) 40 MG TAB PO ×2 (08:26→20:15)
[2018-10-29] MEDS: ONDANSETRON 4 MG INJ IV ×2 (13:15→19:51)
[2018-10-29 13:23] LABS: ADD UMIC YES; UR ASCORBIC ACID NEGATIVE (NEGATIVE); UR BACTERIA MANY /HPF (NONE SEEN); UR BILIRUBIN (Dip) 2+ mg/dL (NEGATIVE); UR BLOOD (Dip) 2+ mg/dL (NEGATIVE); UR CLARITY CLOUDY (CLEAR); UR COLOR AMBER (YELLOW); UR GLUCOSE (Dip) NEGATIVE (NEGATIVE); UR KETONES (Dip) NEGATIVE (NEGATIVE); UR LEUKOCYTE ESTERASE (Dip) 1+ Leu/ul (NEGATIVE); UR MUCUS MANY /HPF (NONE SEEN); UR NITRITE (Dip) NEGATIVE (NEGATIVE); UR RBC 0 /HPF (0-5); UR SPECIFIC GRAVITY (Dip) 1.027 (1.003-1.030); UR SQUAMOUS EPITHELIAL CELL FEW /HPF (FEW); UR TOTAL PROTEIN (Dip) 1+ mg/dl (NEGATIVE); UR UROBILINOGEN (Dip) 2+ mg/dL (NEGATIVE); UR WBC 10 /HPF (0-5)
[2018-10-29] MEDS: INSULIN GLARGINE [LANTus] (100 UNITS/ML) SYG SC (21:22)
[2018-10-29] MEDS: SOD CHLORIDE 0.9% 100 ML (21:26)
[2018-10-29] MEDS: IOHEXOL 100 ML (21:26)
[2018-10-29] MEDS: LIDOCAINE 1% (MPF) 5 ML VIAL ×6 (21:27→21:29)
[2018-10-29] MEDS: SOD CHLORIDE 0.9% 250 ML IV* (21:27)
[2018-10-29] MEDS: IOHEXOL 14.3 MG(I)/ML (ADULT) BTL PO (21:28)
[2018-10-30] MEDS: DIPHENHYDRAMINE 25 MG CAP PO ×2 (01:13→21:56)
[2018-10-30 05:33] LABS: ABNORMAL IP MESSAGE 1; HEMATOCRIT 23.8 % (37.0-47.0); HEMOGLOBIN 8.5 g/dl (12.0-16.0); MEAN CORPUSCULAR HEMOGLOBIN 32.2 pg (29.0-33.0); MEAN CORPUSCULAR HGB CONC 35.7 g/dl (32.0-37.0); MEAN CORPUSCULAR VOLUME 90.2 fl (82.0-101.0); NUCLEATED RED BLOOD CELLS% 1.2 /100WBC (0.0-0.0); RED BLOOD COUNT 2.64 10^6/ul (4.20-5.40); RED CELL DISTRIBUTION WIDTH 17.3 % (11.5-14.5)
[2018-10-30 05:33] LABS: WHITE BLOOD COUNT 2.4 10^3/ul (4.8-10.8)
[2018-10-30 05:44] LABS: PLATELET COUNT 12 10^3/UL (140-415); POSITIVE DIFF @See below
[2018-10-30 05:45] LABS: ADD MAN DIFF? YES
[2018-10-30 05:49] LABS: ANION GAP 19 (5-13); BLOOD UREA NITROGEN 25 mg/dl (7-20); CALCIUM 8.9 mg/dl (8.4-10.2); CARBON DIOXIDE 21 mmol/L (21-31); CHLORIDE 89 mmol/L (97-110); CREATININE 0.69 mg/dl (0.44-1.00); Estimated GFR > 60 mL/min (>60); GLUCOSE 97 mg/dl (70-220); MAGNESIUM 2.3 mg/dl (1.7-2.5); PHOSPHORUS 4.6 mg/dl (2.5-4.9); POTASSIUM 4.1 mmol/L (3.5-5.1); SODIUM 129 mmol/L (135-144)
[2018-10-30] MEDS: INSULIN ASPART [NOVOLOG] 3 ML PEN SC ×4 (08:00→21:00)
[2018-10-30] MEDS: POLYETHYLENE GLYCOL 17 GM PACKET PO (09:09)
[2018-10-30] MEDS: LEVETIRACETAM 500 MG TAB PO ×2 (09:09→21:08)
[2018-10-30] MEDS: PANTOPRAZOLE (EC) 40 MG TAB PO ×2 (09:10→21:08)
[2018-10-30 09:41] LABS: ANISOCYTOSIS 2+ (0-0); BAND NEUTROPHILS #M 0.1 10^3/ul (0.0-0.6); BAND NEUTROPHILS % (M) 7 % (0-4); ERYTHROBLAST% (NRBC) (M) 1 % (0-0); LYMPHOCYTES #M 0.9 10^3/ul (0.8-2.9); LYMPHOCYTES % (M) 40 % (15-51); METAMYELOCYTES %M 1 % (0-0); PLATELET ESTIMATE SIG DECREASED; POIKILOCYTOSIS 2+ (0-0); SEG NEUT #M 1.3 10^3/ul (1.6-7.5); SEGMENTED NEUTROPHILS (M) % 53 % (39-77); SMUDGE%M 3 % (0-0); TARGET CELLS 2+ (0-0)
[2018-10-30 11:10] LABS: TYPE AND SCREEN 1 1
[2018-10-30] MEDS: ONDANSETRON 4 MG INJ IV ×2 (11:38→21:51)
[2018-10-30] MEDS: GUAIFENESIN 20 MG/ML 5ML CUP PO (16:43)
[2018-10-30] MEDS: HYDROCODONE/APAP (5/325) TAB PO (18:57)
[2018-10-30] MEDS: INSULIN GLARGINE [LANTus] (100 UNITS/ML) SYG SC (21:10)
[2018-10-31 05:18] LABS: ADD MAN DIFF? NO
[2018-10-31 05:24] LABS: ABNORMAL IP MESSAGE 1; HEMATOCRIT 22.4 % (37.0-47.0); LYMPHOCYTES % 44.9 % (15.0-51.0); MEAN CORPUSCULAR HEMOGLOBIN 31.9 pg (29.0-33.0); MEAN CORPUSCULAR HGB CONC 35.7 g/dl (32.0-37.0); MEAN CORPUSCULAR VOLUME 89.2 fl (82.0-101.0); MEAN PLATELET VOLUME 10.9 fl (7.4-10.4); MONOCYTE # 0.1 10^3/ul (0.3-0.9); MONOCYTES % 2.8 % (0.0-11.0); NEUTROPHIL # 1.1 10^3/ul (1.6-7.5); NEUTROPHILS % 51.4 % (39.0-77.0); NUCLEATED RED BLOOD CELLS% 1.4 /100WBC (0.0-0.0); PLATELET COUNT 45 10^3/UL (140-415); RED BLOOD COUNT 2.51 10^6/ul (4.20-5.40); RED CELL DISTRIBUTION WIDTH 17.2 % (11.5-14.5)
[2018-10-31 05:24] LABS: WHITE BLOOD COUNT 2.2 10^3/ul (4.8-10.8)
[2018-10-31 05:51] LABS: ANION GAP 17 (5-13); BLOOD UREA NITROGEN 29 mg/dl (7-20); CALCIUM 9.1 mg/dl (8.4-10.2); CARBON DIOXIDE 20 mmol/L (21-31); CHLORIDE 89 mmol/L (97-110); CREATININE 0.71 mg/dl (0.44-1.00); Estimated GFR > 60 mL/min (>60); GLUCOSE 99 mg/dl (70-220); POTASSIUM 3.8 mmol/L (3.5-5.1); SODIUM 126 mmol/L (135-144)
[2018-10-31 06:48] LABS: POSITIVE DIFF @See below
[2018-10-31] MEDS: INSULIN ASPART [NOVOLOG] 3 ML PEN SC ×4 (08:00→20:47)
[2018-10-31] MEDS: PANTOPRAZOLE (EC) 40 MG TAB PO ×2 (08:08→20:31)
[2018-10-31] MEDS: LEVETIRACETAM 500 MG TAB PO ×2 (08:08→20:31)
[2018-10-31] MEDS: POLYETHYLENE GLYCOL 17 GM PACKET PO (08:09)
[2018-10-31] MEDS: HYDROCODONE/APAP (5/325) TAB PO (13:13)
[2018-10-31] MEDS: DIPHENHYDRAMINE 25 MG CAP PO (20:31)
[2018-10-31] MEDS: ACETAMINOPHEN 650MG/20.3ML CUP PO (20:32)
[2018-10-31] MEDS: INSULIN GLARGINE [LANTus] (100 UNITS/ML) SYG SC (20:40)
[2018-11-01] MEDS: DIPHENHYDRAMINE 25 MG CAP PO ×2 (04:57→20:07)
[2018-11-01 06:05] LABS: ANION GAP 21 (5-13); BLOOD UREA NITROGEN 37 mg/dl (7-20); CALCIUM 8.9 mg/dl (8.4-10.2); CARBON DIOXIDE 19 mmol/L (21-31); CHLORIDE 88 mmol/L (97-110); CREATININE 0.96 mg/dl (0.44-1.00); Estimated GFR > 60 mL/min (>60); GLUCOSE 88 mg/dl (70-220); MAGNESIUM 2.5 mg/dl (1.7-2.5); PHOSPHORUS 4.7 mg/dl (2.5-4.9); SODIUM 128 mmol/L (135-144)
[2018-11-01 06:10] LABS: URIC ACID 8.2 mg/dl (3.1-7.9)
[2018-11-01 06:43] LABS: OSMOLALITY 271 mOsm/kg (280-295)
[2018-11-01 07:24] LABS: ABNORMAL IP MESSAGE 1; HEMATOCRIT 23.9 % (37.0-47.0); HEMOGLOBIN 8.4 g/dl (12.0-16.0); MEAN CORPUSCULAR HEMOGLOBIN 31.6 pg (29.0-33.0); MEAN CORPUSCULAR HGB CONC 35.1 g/dl (32.0-37.0); MEAN CORPUSCULAR VOLUME 89.8 fl (82.0-101.0); MEAN PLATELET VOLUME 9.4 fl (7.4-10.4); NUCLEATED RED BLOOD CELLS% 5.4 /100WBC (0.0-0.0); RED BLOOD COUNT 2.66 10^6/ul (4.20-5.40); RED CELL DISTRIBUTION WIDTH 18.1 % (11.5-14.5)
[2018-11-01 07:24] LABS: WHITE BLOOD COUNT 2.6 10^3/ul (4.8-10.8)
[2018-11-01] MEDS: INSULIN ASPART [NOVOLOG] 3 ML PEN SC ×4 (08:00→20:08)
[2018-11-01 08:01] LABS: ADD MAN DIFF? YES; PLATELET COUNT 28 10^3/UL (140-415); POSITIVE DIFF @See below
[2018-11-01] MEDS: PANTOPRAZOLE (EC) 40 MG TAB PO ×2 (08:50→20:07)
[2018-11-01] MEDS: POLYETHYLENE GLYCOL 17 GM PACKET PO (08:51)
[2018-11-01] MEDS: LEVETIRACETAM 500 MG TAB PO ×2 (08:51→20:07)
[2018-11-01] MEDS: TRIMETHOPRIM/SULFAMETHOX (DS) TAB PO (08:53)
[2018-11-01 10:50] LABS: ANISOCYTOSIS 2+ (0-0); BAND NEUTROPHILS #M 0.1 10^3/ul (0.0-0.6); BAND NEUTROPHILS % (M) 7 % (0-4); ERYTHROBLAST% (NRBC) (M) 2 % (0-0); LYMPHOCYTES #M 1.2 10^3/ul (0.8-2.9); LYMPHOCYTES % (M) 48 % (15-51); MICROCYTOSIS 1+ (0-0); MONOCYTE #M 0.1 10^3/ul (0.3-0.9); MONOCYTES % (M) 4 % (0-11); PLATELET ESTIMATE SIG DECREASED; POIKILOCYTOSIS 1+ (0-0); POLYCHROMASIA 3+ (0-0); SEG NEUT #M 1.1 10^3/ul (1.6-7.5); SEGMENTED NEUTROPHILS (M) % 41 % (39-77); SMUDGE%M 2 % (0-0); STOMATOCYTES 1+ (0-0); TARGET CELLS 1+ (0-0)
[2018-11-01] MEDS: HYDROCODONE/APAP (5/325) TAB PO (20:07)
[2018-11-01] MEDS: INSULIN GLARGINE [LANTus] (100 UNITS/ML) SYG SC (20:12)
[2018-11-02 05:56] LABS: ABNORMAL IP MESSAGE 1; HEMATOCRIT 22.4 % (37.0-47.0); HEMOGLOBIN 8.1 g/dl (12.0-16.0); MEAN CORPUSCULAR HEMOGLOBIN 32.3 pg (29.0-33.0); MEAN CORPUSCULAR HGB CONC 36.2 g/dl (32.0-37.0); MEAN CORPUSCULAR VOLUME 89.2 fl (82.0-101.0); NUCLEATED RED BLOOD CELLS% 9.8 /100WBC (0.0-0.0); RED BLOOD COUNT 2.51 10^6/ul (4.20-5.40); RED CELL DISTRIBUTION WIDTH 18.2 % (11.5-14.5)
[2018-11-02 05:56] LABS: WHITE BLOOD COUNT 3.3 10^3/ul (4.8-10.8)
[2018-11-02] MEDS ORDERED: DIPHENHYDRAMINE 50 MG INJ (06:00)
[2018-11-02] MEDS ORDERED: morphine 4 MG/ML VIAL (06:01)
[2018-11-02] MEDS: morphine 4 MG/ML VIAL IV ×2 (06:06→16:04)
[2018-11-02] MEDS: DIPHENHYDRAMINE 50 MG INJ IV ×2 (06:06→13:14)
[2018-11-02 06:09] LABS: POSITIVE DIFF @See below
[2018-11-02 06:10] LABS: ADD MAN DIFF? YES
[2018-11-02 06:11] LABS: PLATELET COUNT 22 10^3/UL (140-415)
[2018-11-02 06:19] LABS: ANION GAP 20 (5-13); BLOOD UREA NITROGEN 52 mg/dl (7-20); CALCIUM 8.9 mg/dl (8.4-10.2); CARBON DIOXIDE 17 mmol/L (21-31); CHLORIDE 89 mmol/L (97-110); CREATININE 1.31 mg/dl (0.44-1.00); Estimated GFR 44 mL/min (>60); GLUCOSE 96 mg/dl (70-220); POTASSIUM 4.1 mmol/L (3.5-5.1); SODIUM 126 mmol/L (135-144)
[2018-11-02] MEDS: INSULIN ASPART [NOVOLOG] 3 ML PEN SC ×2 (08:00→12:00)
[2018-11-02 08:18] LABS: ANISOCYTOSIS 2+ (0-0); BAND NEUTROPHILS #M 0.2 10^3/ul (0.0-0.6); BAND NEUTROPHILS % (M) 7 % (0-4); ERYTHROBLAST% (NRBC) (M) 10 % (0-0); HYPOCHROMASIA 1+ (0-0); LYMPHOCYTES #M 1.7 10^3/ul (0.8-2.9); LYMPHOCYTES % (M) 53 % (15-51); METAMYELOCYTES %M 1 % (0-0); MICROCYTOSIS 1+ (0-0); MONOCYTES % (M) 2 % (0-11); OVALOCYTES 1+ (0-0); PLATELET ESTIMATE SIG DECREASED; POLYCHROMASIA 3+ (0-0); SEG NEUT #M 1.2 10^3/ul (1.6-7.5); SEGMENTED NEUTROPHILS (M) % 37 % (39-77); SMUDGE%M 1 % (0-0); STOMATOCYTES 2+ (0-0)
[2018-11-02] MEDS: LEVETIRACETAM 500 MG TAB PO (09:16)
[2018-11-02] MEDS: PANTOPRAZOLE (EC) 40 MG TAB PO (09:16)
[2018-11-02] MEDS: POLYETHYLENE GLYCOL 17 GM PACKET PO (09:17)
[2018-11-02] MEDS: SOD CHLORIDE 0.9% 1,000 ML IV (09:18)
[2018-11-02] MEDS: HEPARIN (100 UNITS/ML) 5 ML SYG CATHETER (17:26)
== END 2018-11-02 17:40 | disposition left against medical advice (07) | DRG 54 ==
LOC: ICU 19:44 → 2NE 10-14 06:13 → FTE 14:38
PROC: 30233R1 Transfusion of Nonautologous Platelets into Peripheral Vein, Percutaneous Approach (ICD-10-PCS; 2018-10-10)
PROC: 009U3ZX Drainage of Spinal Canal, Percutaneous Approach, Diagnostic (ICD-10-PCS; principal; 2018-10-12)
PROC: B01BYZZ Fluoroscopy of Spinal Cord using Other Contrast (ICD-10-PCS; 2018-10-12)
PROC: 3E0R305 Introduction of Other Antineoplastic into Spinal Canal, Percutaneous Approach (ICD-10-PCS; 2018-10-12)
PROC: 3E0R33Z Introduction of Anti-inflammatory into Spinal Canal, Percutaneous Approach (ICD-10-PCS; 2018-10-12)
DX: C79.32 Secondary malignant neoplasm of cerebral meninges (principal); G93.6 Cerebral edema; J18.9 Pneumonia, unspecified organism; C78.7 Secondary malignant neoplasm of liver and intrahepatic bile duct; C80.0 Disseminated malignant neoplasm, unspecified; D61.9 Aplastic anemia, unspecified; E22.2 Syndrome of inappropriate secretion of antidiuretic hormone; R17 Unspecified jaundice; C50.912 Malignant neoplasm of unspecified site of left female breast; D69.6 Thrombocytopenia, unspecified; E86.1 Hypovolemia; E03.9 Hypothyroidism, unspecified; E66.9 Obesity, unspecified; G93.2 Benign intracranial hypertension; I16.0 Hypertensive urgency; I10 Essential (primary) hypertension; R51 Headache; R53.1 Weakness; R07.89 Other chest pain; R82.71 Bacteriuria; R09.02 Hypoxemia; R73.03 Prediabetes; Z92.21 Personal history of antineoplastic chemotherapy; Z90.12 Acquired absence of left breast and nipple; Z17.1 Estrogen receptor negative status [ER-]; Z68.36 Body mass index [BMI] 36.0-36.9, adult
CPT/HCPCS: 36415; 36430; 36600; 70450; 70496; 70498; 70544; 70553; 71045; 71250; 71275; 74018; 74176; 76705; 80048; 80053; 80061; 80076; 80202; 80307; 81001; 81003; 82550; 82553; 82803; 82945; 82962; 83036; 83735; 83930; 84100; 84157; 84484; 84560; 84703; 85025; 85610; 85730; 86644; 86850; 86900; 86901; 86945; 87040; 87081; 87086; 88104; 88107; 89051; 92610; 93005; 93306; 96374; 96450; 97110; 97116; 97161; 97167; 97530; 97535; 99285-25